=== PATIENT | male | born 1935 | race Caucasian/White ===

== ENCOUNTER 2018-05-05 01:09 | Inpatient (IN) | payer MEDICARE ==
[2018-05-05 02:22] LABS: % BASOPHILS 1.1 % (0.0-2.0); % EOSINOPHILS 6.1 % (0.0-5.0); % LYMPHOCYTES 35.7 % (20.0-50.0); % MONOCYTES 12.9 % (2.0-10.0); % NEUTROPHILS 44.2 % (40.0-80.0); BASOPHILE ABSOLUTE 0.1 Th/cumm (0-0.2); EOSINOPHILE ABSOLUTE 0.3 Th/cmm (0.1-0.4); HEMATOCRIT 37.4 % (41.0-60); HEMOGLOBIN 12.1 gm/dL (12-16); MEAN CELL VOLUME 87.4 fl (80-99); MEAN CORPUSCULAR HEMOGLOBIN 28.4 pg (27.0-31.0); MEAN CORPUSCULAR HGB CONC 32.5 pg (28.0-36.0); MEAN PLATELET VOLUME 11.1 fl; MONOCYTE ABSOLUTE 0.7 Th/cmm (0.3-1.0); NEUTROPHILE ABSOLUTE 2.6 Th/cmm (1.8-8.0); PLATELET COUNT 124 Th/cmm (150-400); RED BLOOD COUNT 4.27 Mil/cmm (3.80-5.80); RED CELL DISTRIBUTION WIDTH 14.8 % (11.5-20.0); WHITE BLOOD COUNT 5.7 Th/cmm (4.8-10.8)
[2018-05-05 02:38] LABS: ALB/GLOB RATIO 0.8 (1.0-1.8); ALBUMIN 3.5 gm/dL (4.2-5.5); ALKALINE PHOSPHATASE 90 U/L (34-104); ANION GAP 10.2 (7.0-16.0); BILIRUBIN,TOTAL 0.4 mg/dL (0.3-1.0); BUN - UREA NITROGEN 61 mg/dL (7-25); CALCIUM SERUM 9.6 mg/dL (8.6-10.3); CARBON DIOXIDE 29.7 mEq/L (21.0-31.0); CHLORIDE 101 mEq/L (98-107); CREATININE - SERUM 1.3 mg/dL (0.7-1.3); GLUCOSE 86 mg/dL (70-105); POTASSIUM SERUM 4.9 mEq/L (3.5-5.1); SGOT 21 U/L (13-39); SGPT/ALT 12 U/L (7-52); SODIUM SERUM 136 mEq/L (136-145)
--- NOTE | 2018-05-05 03:05 | ED Physician Chart ---
ED Chief Complaint/HPI - Patient Information Date Seen:: 05/05/18 Time Seen:: 03:00 Chief Complaint:: Abnormal CXR History of Present Illness:: 82 yo male with trach was brought from [facility] to ER for evaluation of CXR on showing probably right lower lobe pneumonia. TB could not be entirely excluded. At ER, pt had cough and secretion from the trach. Allergies:: Allergies Allergy/AdvReac Type Severity Reaction Status Date / Time No Known Allergies Allergy Verified 05/05/18 01:25 Vitals:: Vital Signs - 8 hr 05/05/18 01:10 Temp 97.4 F HR 70 RR 18 BP 91/55 O2 Sat % 96 ED Review of Systems - Review of Systems General/Constitutional: No fever, No chills Skin: No rash Head: No headache Eyes: No pain ENT: No nasal drainage Neck: Other (Trach) Cardio Vascular: No chest pain Pulmonary: No SOB GI: No nausea, No vomiting Musculoskeletal: No bone or joint pain Neurological: No focal symptoms ED Past Medical History - Past Medical History Past Medical History: Other (AFib, BPH, stage 4 bladder cancer) Social History: Non Smoker, No Alcohol, No Drug Use Surgical History: PEG/GTube, other (Trach) Psychiatricy History: Bipolar Family Medical History - Family Member Mother History Unknown: Yes ED Physical Exam - Physical Examination General/Constitutional: Awake, Alert Head: Atraumatic Eyes: PERRL Skin: No ecchymosis ENMT: Nasal exam nl Other Neck comments:: Trach intact Cardio Vascular: RRR, No murmur, gallop, rubs, NL S1 S2 GI: No tenderness/rebounding/guarding Extremities: normal strength in all extremities Neuro/Psych: No focal deficits ED Labs/Radiology/EKG Results - Lab Results Results: Laboratory Tests 05/05/18 02:15 WBC 5.7 RBC 4.27 Hgb 12.1 Hct 37.4 L MCV 87.4 MCH 28.4 MCHC Differential 32.5 RDW 14.8 Plt Count 124 L MPV 11.1 Neutrophils % 44.2 Lymphocytes % 35.7 Monocytes % 12.9 H Eosinophils % 6.1 H Basophils % 1.1 Laboratory Last Values WBC 5.7 Th/cmm (4.8-10.8) 05/05/18 02:15 RBC 4.27 Mil/cmm (3.80-5.80) 05/05/18 02:15 Hgb 12.1 gm/dL (12-16) 05/05/18 02:15 Hct 37.4 % (41.0-60) L 05/05/18 02:15 MCV 87.4 fl (80-99) 05/05/18 02:15 MCH 28.4 pg (27.0-31.0) 05/05/18 02:15 MCHC Differential 32.5 pg (28.0-36.0) 05/05/18 02:15 RDW 14.8 % (11.5-20.0) 05/05/18 02:15 Plt Count 124 Th/cmm (150-400) L 05/05/18 02:15 MPV 11.1 fl 05/05/18 02:15 Neutrophils % 44.2 % (40.0-80.0) 05/05/18 02:15 Lymphocytes % 35.7 % (20.0-50.0) 05/05/18 02:15 Monocytes % 12.9 % (2.0-10.0) H 05/05/18 02:15 Eosinophils % 6.1 % (0.0-5.0) H 05/05/18 02:15 Basophils % 1.1 % (0.0-2.0) 05/05/18 02:15 Sodium 136 mEq/L (136-145) 05/05/18 02:15 Potassium 4.9 mEq/L (3.5-5.1) 05/05/18 02:15 Chloride 101 mEq/L (98-107) 05/05/18 02:15 Carbon Dioxide 29.7 mEq/L (21.0-31.0) 05/05/18 02:15 Anion Gap 10.2 (7.0-16.0) 05/05/18 02:15 BUN 61 mg/dL (7-25) H 05/05/18 02:15 Creatinine 1.3 mg/dL (0.7-1.3) 05/05/18 02:15 Est GFR ( Amer) TNP 05/05/18 02:15 Est GFR (Non-Af Amer) TNP 05/05/18 02:15 BUN/Creatinine Ratio 46.9 05/05/18 02:15 Glucose 86 mg/dL (70-105) 05/05/18 02:15 POC Glucose 88 MG/DL (70 - 105) 05/05/18 10:00 Calcium 9.6 mg/dL (8.6-10.3) 05/05/18 02:15 Total Bilirubin 0.4 mg/dL (0.3-1.0) 05/05/18 02:15 AST 21 U/L (13-39) 05/05/18 02:15 ALT 12 U/L (7-52) 05/05/18 02:15 Alkaline Phosphatase 90 U/L (34-104) 05/05/18 02:15 Troponin I 0.01 ng/mL (0.01-0.05) 05/05/18 02:15 Total Protein 8.0 gm/dL (6.0-8.3) 05/05/18 02:15 Albumin 3.5 gm/dL (4.2-5.5) L 05/05/18 02:15 Globulin 4.5 gm/dL 05/05/18 02:15 Albumin/Globulin Ratio 0.8 (1.0-1.8) L 05/05/18 02:15 - Radiology Results Results: CT chest with contrast showed small cystic/cavity lesion in the right middle lobe with subjacent streaky density 2.4cm likely chronic change. Mild pleural thickening in the left lung base. calcified nodules in the left lower lobe. ED Assessment - Assessment General Assessment: Right mid lung cavity lesion with calcified nodularities left lower lobe and small mediastinal lymph nodes To rule out TB Dehydration Assessment/Comments:: CBC, CMP NS 1L iv bolus Admit to isolation unit for further evaluation and management ED Septic Shock - . Is Septic Shock (SBP<90, OR Lactate>4 mmol\L) present?: No - <6hrs of presentation: Vital Signs: Vital Signs - 8 hr 05/05/18 01:10 Temp 97.4 F HR 70 RR 18 BP 91/55 O2 Sat % 96 ED Reassessment (Disposition) - Reassessment Reassessment Condition:: Improved - Patient Disposition Discharge/Transfer:: Acute Care w/in this hosp Admitting Medical Physician:: Leila Vela
[2018-05-05] MEDS ORDERED: Sodium Chloride 0.9% 1,000 ML IV ONE (03:35)
[2018-05-05] MEDS ORDERED: IOHEXOL 300mgI/mL 100 ML VIAL ONE (03:58)
--- NOTE | 2018-05-05 08:27 | Diagnostic Imaging Report ---
Exam: CT exam of the chest HISTORY: Tuberculosis. Total DLP equals 261 CTDI equals 7.0 Findings: Multiple contiguous thin section of the chest were obtained from thoracic outlet to the upper abdomen with administration of contrast material no prior studies available comparison. The study demonstrates normal enhancement of great vessels of the neck. Tracheostomy tube is noted There is evidence for a small 2.4 cm cavitary lesion in the right middle lobe of the adjacent streaky density most likely chronic. Mild pleural effusion left lung base Calcified nodularities in the left lower lobe. Aortic is calcified tortuous. Small mediastinal lymph nodes are probably reactive. Mediastinal structures midline. Bony thorax is intact. Old deformity of the left rib cage appreciated. Examination upper abdomen demonstrates gastrostomy tube. There is evidence for a large right renal cyst measuring 6.9 cm. Left kidney is atrophic with distention of the renal pelvis. IMPRESSION: 2.4 cm cavitary lesion in the right middle lobe, most likely chronic. Calcified nodularities left lower lobe Small mediastinal lymph nodes. 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
[2018-05-05 10:41] VITALS: BP 141/88
[2018-05-05] MEDS ORDERED: Pneumococcal Vaccine 0.5 mL Vial IM ONE (11:13)
[2018-05-05] MEDS: cefTRIAXone 1 GM in Sodium Chloride 0.9% 50 ML IV SCH (11:17)
[2018-05-05] MEDS ORDERED: GLYCOPYRROLATE 1 MG GT PRN (13:26)
[2018-05-05] MEDS ORDERED: guaiFENesin 200 MG/10 ML UDC GT PRN (13:26)
--- NOTE | 2018-05-05 13:26 | History and Physical ---
History of Present Illness - HPI Chief Complaint: abnormal chest xray HPI: This is a 82-year old male who is a custodial resident admitted to the medsur unit. Patient had a chest xray done at the [facility] 05/04/18 probably right lower lobe pneumonia. TB could not be entirely excluded. CT chest with contrast showed small cystic/cavity lesion in the right middle lobe with subjacent streaky density 2.4cm. No reports of any fevers at the snf. Vital Signs: Last Vital Signs Temp 98.7 F 05/05/18 12:10 Pulse 69 05/05/18 12:10 Resp 19 05/05/18 12:10 BP 131/79 05/05/18 12:10 Pulse Ox 96 05/05/18 12:10 Past Medical History Other History: AFib, BPH, stage 4 bladder cancer Family Medical History - Family Member Mother History Unknown: Yes Social History Smoke: No Alcohol: None Drugs: None Lives: Alone - Medications Home Medications: Home Medication Medication Instructions Recorded Type Benazepril [Lotensin*] 10 mg GT DAILY 05/05/18 History Donepezil HCl [Aricept] 15 mg GT DAILY 05/05/18 History Duloxetine HCl [Cymbalta] 60 mg GT DAILY 05/05/18 History Ferrous Sulfate 220 mg GT TID 05/05/18 History Glycopyrrolate [Cuvposa] 1 mg GT Q12HR PRN 05/05/18 History Guaifenesin [Cough Syrup] 10 ml GT Q6HR PRN 05/05/18 History Lipase/Protease/Amylase [Creon Dr 1 each GT BID 05/05/18 History 12,000 Units Capsule] Polyvinyl Alcohol [Liquitears] 2 drop OP DAILY 05/05/18 History QUEtiapine Fumarate [SEROquel] 100 mg GT BID 05/05/18 History Sodium Bicarbonate 650 mg GT BID 05/05/18 History Tamsulosin [Flomax] 0.4 mg GT DAILY 05/05/18 History Valproic Acid [Depakene] 500 mg GT HS 05/05/18 History - Allergies Allergies/Adverse Reactions: Allergies Allergy/AdvReac Type Severity Reaction Status Date / Time No Known Allergies Allergy Verified 05/05/18 01:25 Review of Systems - Review of Systems Constitutional: Report: Weakness Eyes: Report: No Significant Respiratory: Report: Sputum Cardiovascular: Report: No Significant Neurological: Report: Weakness Physical Exam - Physical Exam HEENT: Report: Ears Nose Throat within normal limits Neck: Report: Within normal limits Cardiovascular Systems: Report: Regular, Rate and Rhythm Respiratory: Report: Rhonchi Abdomen: Report: Non-tender to palpation Back: Report: Inspection of back is within normal limits. Skin: Report: Warm, Dry Neuro/Psych: Report: Weakness or sensory loss noted. - Lab Results All Lab Results last 24 hours: Laboratory Results - last 24 hr 05/05/18 05/05/18 05/05/18 02:15 02:15 02:15 WBC 5.7 RBC 4.27 Hgb 12.1 Hct 37.4 L MCV 87.4 MCH 28.4 MCHC Differential 32.5 RDW 14.8 Plt Count 124 L MPV 11.1 Neutrophils % 44.2 Lymphocytes % 35.7 Monocytes % 12.9 H Eosinophils % 6.1 H Basophils % 1.1 Sodium 136 Potassium 4.9 Chloride 101 Carbon Dioxide 29.7 Anion Gap 10.2 BUN 61 H Creatinine 1.3 Est GFR ( Amer) TNP Est GFR (Non-Af Amer) TNP BUN/Creatinine Ratio 46.9 Glucose 86 POC Glucose Calcium 9.6 Total Bilirubin 0.4 AST 21 ALT 12 Alkaline Phosphatase 90 Troponin I 0.01 Total Protein 8.0 Albumin 3.5 L Globulin 4.5 Albumin/Globulin Ratio 0.8 L 05/05/18 10:00 WBC RBC Hgb Hct MCV MCH MCHC Differential RDW Plt Count MPV Neutrophils % Lymphocytes % Monocytes % Eosinophils % Basophils % Sodium Potassium Chloride Carbon Dioxide Anion Gap BUN Creatinine Est GFR ( Amer) Est GFR (Non-Af Amer) BUN/Creatinine Ratio Glucose POC Glucose 88 Calcium Total Bilirubin AST ALT Alkaline Phosphatase Troponin I Total Protein Albumin Globulin Albumin/Globulin Ratio - Assessment Assessment: r/o tb pneumonia respiratory failure BPh stage 4 bladder ca - Plan Plan: ADMIT TO [facility] ID/PULMO CONSULT TB QUANT GOLD TEST AFB X3 AM LABS RESPIRATORY TREATMENTS IVABX ZOSYN
[2018-05-05] MEDS ORDERED: FERROUS SULFATE 220 MG GT SCH (14:00)
[2018-05-05] MEDS ORDERED: [UNRECOGNIZED DRUG - OTHER] GT SCH (17:00)
[2018-05-05] MEDS ORDERED: LIPASE GT SCH (17:00)
[2018-05-05] MEDS ORDERED: PROTEASE GT SCH (17:00)
[2018-05-05] MEDS ORDERED: AMYLASE GT SCH (17:00)
[2018-05-06 06:23] LABS: % BASOPHILS 0.1 % (0.0-2.0); % LYMPHOCYTES 33.4 % (20.0-50.0); % MONOCYTES 12.1 % (2.0-10.0); % NEUTROPHILS 48.4 % (40.0-80.0); EOSINOPHILE ABSOLUTE 0.3 Th/cmm (0.1-0.4); HEMATOCRIT 37.5 % (41.0-60); HEMOGLOBIN 12.3 gm/dL (12-16); LYMPHOCYTE ABSOLUTE 1.9 Th/cmm (1.5-3.0); MEAN CELL VOLUME 87.4 fl (80-99); MEAN CORPUSCULAR HEMOGLOBIN 28.7 pg (27.0-31.0); MEAN CORPUSCULAR HGB CONC 32.9 pg (28.0-36.0); MEAN PLATELET VOLUME 11.8 fl; MONOCYTE ABSOLUTE 0.7 Th/cmm (0.3-1.0); NEUTROPHILE ABSOLUTE 2.7 Th/cmm (1.8-8.0); PLATELET COUNT 111 Th/cmm (150-400); RED BLOOD COUNT 4.29 Mil/cmm (3.80-5.80); RED CELL DISTRIBUTION WIDTH 14.6 % (11.5-20.0); WHITE BLOOD COUNT 5.6 Th/cmm (4.8-10.8)
[2018-05-06 06:37] LABS: ANION GAP 9.9 (7.0-16.0); BUN - UREA NITROGEN 45 mg/dL (7-25); CALCIUM SERUM 9.3 mg/dL (8.6-10.3); CARBON DIOXIDE 28.5 mEq/L (21.0-31.0); CHLORIDE 107 mEq/L (98-107); CREATININE - SERUM 1.1 mg/dL (0.7-1.3); GLUCOSE 83 mg/dL (70-105); POTASSIUM SERUM 4.4 mEq/L (3.5-5.1); SODIUM SERUM 141 mEq/L (136-145)
[2018-05-06] MEDS ORDERED: Non-Formulary Item 1 EA (Duloxetine Hcl [Cymbalta] 60 MG) GT SCH (09:00)
[2018-05-06] MEDS: Polyvinyl Alcohol Ophth Soln 15 mL Bottle EACH EYE SCH (10:11)
[2018-05-06] MEDS: cefTRIAXone 1 GM in Sodium Chloride 0.9% 50 ML IV SCH (10:34)
--- NOTE | 2018-05-06 11:18 | Consultation ---
DATE OF CONSULTATION: 05/05/[address] Vela. HISTORY OF PRESENT ILLNESS: This is an 82-year-old male who apparently was from a [facility] because of fever and some increased secretions and was found to have possible cavitary lesion, was placed in TB isolation room. The patient denies any shortness of breath, has some cough. He denies TB or TB exposure in the past. SOCIAL HISTORY: No smoking. PAST MEDICAL HISTORY: He has a history of bladder CA, history of BPH, AFib. PHYSICAL EXAMINATION: GENERAL: The patient is awake, alert, no distress. VITAL SIGNS: Temperature 98.7, pulse 69, respirations 19, blood pressure 131/79, saturation 97%. HEENT: Atraumatic, normocephalic. Pupils equal and reactive to light and accommodation. Ears, nose and throat normal. NECK: Supple. No JVD. CHEST: There are good breath sounds, few rhonchi. HEART: Regular rate and rhythm. ABDOMEN: Soft. EXTREMITIES: No edema. DIAGNOSTIC DATA: CT chest shows cavitary infiltrate right middle lobe area. LABORATORY DATA: WBC is 5.7, hemoglobin 12.1, hematocrit 37.4, platelets 124. Sodium 136, potassium 4.9, BUN 61, creatinine 1.3. IMPRESSION: An 82-year-old male with severe pneumonia. We need to get more information about the bladder CA if this lesion is related to any metastases, less likely tuberculosis. PLAN: 1. I agree with AFB at this point and continue. 2. Empiric antibiotics. 3. The patient is upset, does not want to stay in this facility. He said he wants to be discharged as soon as possible. We will relay this information to the primary care physician to take care from there. Thank you very much for this consultation. We will follow the patient with you. JOB# [id number]
--- NOTE | 2018-05-06 13:08 | Internal Medicine Prog Note ---
Internal Medicine Subjective - Subjective Service Date: 05/06/18 Patient seen and examined:: with staff Patient is:: awake, verbal Per staff patient has:: tolerating meds Internal Medicine Objective - Results Result Diagrams: 05/06/18 05:40 05/06/18 05:40 Recent Labs: Laboratory Last Values WBC 5.6 Th/cmm (4.8-10.8) 05/06/18 05:40 RBC 4.29 Mil/cmm (3.80-5.80) 05/06/18 05:40 Hgb 12.3 gm/dL (12-16) 05/06/18 05:40 Hct 37.5 % (41.0-60) L 05/06/18 05:40 MCV 87.4 fl (80-99) 05/06/18 05:40 MCH 28.7 pg (27.0-31.0) 05/06/18 05:40 MCHC Differential 32.9 pg (28.0-36.0) 05/06/18 05:40 RDW 14.6 % (11.5-20.0) 05/06/18 05:40 Plt Count 111 Th/cmm (150-400) L 05/06/18 05:40 MPV 11.8 fl 05/06/18 05:40 Neutrophils % 48.4 % (40.0-80.0) 05/06/18 05:40 Lymphocytes % 33.4 % (20.0-50.0) 05/06/18 05:40 Monocytes % 12.1 % (2.0-10.0) H 05/06/18 05:40 Eosinophils % 6.0 % (0.0-5.0) H 05/06/18 05:40 Basophils % 0.1 % (0.0-2.0) 05/06/18 05:40 Sodium 141 mEq/L (136-145) 05/06/18 05:40 Potassium 4.4 mEq/L (3.5-5.1) 05/06/18 05:40 Chloride 107 mEq/L (98-107) 05/06/18 05:40 Carbon Dioxide 28.5 mEq/L (21.0-31.0) 05/06/18 05:40 Anion Gap 9.9 (7.0-16.0) 05/06/18 05:40 BUN 45 mg/dL (7-25) H 05/06/18 05:40 Creatinine 1.1 mg/dL (0.7-1.3) 05/06/18 05:40 Est GFR ( Amer) TNP 05/06/18 05:40 Est GFR (Non-Af Amer) TNP 05/06/18 05:40 BUN/Creatinine Ratio 40.9 05/06/18 05:40 Glucose 83 mg/dL (70-105) 05/06/18 05:40 POC Glucose 88 MG/DL (70 - 105) 05/05/18 10:00 Calcium 9.3 mg/dL (8.6-10.3) 05/06/18 05:40 Total Bilirubin 0.4 mg/dL (0.3-1.0) 05/05/18 02:15 AST 21 U/L (13-39) 05/05/18 02:15 ALT 12 U/L (7-52) 05/05/18 02:15 Alkaline Phosphatase 90 U/L (34-104) 05/05/18 02:15 Troponin I 0.01 ng/mL (0.01-0.05) 05/05/18 02:15 Total Protein 8.0 gm/dL (6.0-8.3) 05/05/18 02:15 Albumin 3.5 gm/dL (4.2-5.5) L 05/05/18 02:15 Globulin 4.5 gm/dL 05/05/18 02:15 Albumin/Globulin Ratio 0.8 (1.0-1.8) L 05/05/18 02:15 - Physical Exam Vitals and I&O: Vital Signs Temp 96.3 F 05/06/18 12:00 Pulse 74 05/06/18 12:00 Resp 18 05/06/18 12:00 BP 129/74 05/06/18 12:00 Pulse Ox 98 05/06/18 12:00 Intake & Output 05/05/18 05/06/18 05/06/18 18:59 06:59 18:59 Intake Total 420 500 Balance 420 500 Weight (lbs) 163 lb 163 lb Intake: Intake, IV Amount 50 cefTRIAXone 1 gm In 50 Sodium Chloride 0.9% 50 ml @ 100 mls/hr IV Q24HR [facility] Rx#:[id number] Tube Feeding 370 500 Other: # Voids 3 1 # Bowel Movements 1 Weight Source Bedscale Bedscale Active Medications: Current Medications Lipase/Protease/Amylase (Zenpep 5,000 U) 1 cap PO BID [facility] Stop: 07/04/18 16:59 Last Admin: 05/06/18 10:09 Dose: 1 cap Artificial Tears (Artificial Tears Ophth Soln) 2 drop EACH EYE DAILY [facility] Stop: 07/05/18 08:59 Last Admin: 05/06/18 10:11 Dose: 2 drop Benazepril HCl (Lotensin) 10 mg GT DAILY [facility] Stop: 07/05/18 08:59 Last Admin: 05/06/18 10:10 Dose: 10 mg Donepezil HCl (Aricept) 15 mg GT DAILY [facility] Stop: 07/05/18 08:59 Last Admin: 05/06/18 10:11 Dose: 15 mg Duloxetine HCl (Cymbalta) 60 mg PO DAILY [facility] Stop: 07/05/18 08:59 Last Admin: 05/06/18 10:09 Dose: 60 mg Glycopyrrolate (Robinul) 1 mg PO BID [facility] Stop: 07/04/18 16:59 Last Admin: 05/06/18 10:10 Dose: 1 mg Guaifenesin (Robitussin) 200 mg GT Q6HR PRN PRN Reason: Cough Stop: 07/04/18 13:25 Ceftriaxone Sodium 1 gm/ (Sodium Chloride) 50 mls @ 100 mls/hr IV Q24HR [facility] Stop: 07/04/18 10:06 Last Admin: 05/06/18 10:34 Dose: 100 mls/hr Quetiapine Fumarate (Seroquel) 100 mg GT BID [facility]; Protocol Stop: 07/04/18 16:59 Last Admin: 05/06/18 10:11 Dose: 100 mg Sodium Bicarbonate (Sodium Bicarbonate) 650 mg GT BID [facility]; Protocol Stop: 07/04/18 16:59 Last Admin: 05/06/18 10:09 Dose: 650 mg Tamsulosin HCl (Flomax) 0.4 mg GT DAILY [facility] Stop: 07/05/18 08:59 Last Admin: 05/06/18 10:11 Dose: 0.4 mg Valproate Sodium (Depakene) 500 mg GT HS [facility]; Protocol Stop: 07/04/18 20:59 Last Admin: 05/05/18 21:33 Dose: 500 mg General: weak, alert HEENT: NC/AT, PERRLA Neck: + trach Abdomen: soft, non-tender, non-distended Extremities: excoriation Neurological: alert, muscle weakness Internal Medicine Assmt/Plan - Assessment Assessment: r/o tb aspiration pneumonia respiratory failure BPh stage 4 bladder ca tracheostomy status - Plan Plan: TB QUANT GOLD TEST pending AFB X3 AM LABS RESPIRATORY TREATMENTS IVABX ZOSYN continue current plan of care
--- NOTE | 2018-05-07 06:04 | Consultation ---
DATE OF CONSULTATION: 05/06/2018 INFECTIOUS DISEASE CONSULTATION REFERRING PHYSICIAN: Dr. Vela. REASON FOR CONSULTATION: Cavitary lesion, right lower lobe. Rule out tuberculosis. HISTORY OF PRESENT ILLNESS: The patient is an 82-year-old male with past medical history of atrial fibrillation, BPH, stage 4 bladder cancer, resident of a nursing facility, had a chest x-ray done on 05/04/2018 that showed probable right lower lobe pneumonia, suspected tuberculosis. CT scan of the chest was done at this facility and it revealed right middle lobe cavitary lesion, chronic in nature, with lymphadenopathy. TB was suspected and TB workup was initiated. On initial evaluation, the patient's temperature was 97.4-degree Fahrenheit and WBC count was 5700. The patient was started on Rocephin and ID consult was called for further antibiotic management. The patient denies any fever or hemoptysis or any significant weight loss. ALLERGIES: NKDA. PAST MEDICAL HISTORY: As mentioned above; BPH, AFib, stage 4 bladder cancer. FAMILY HISTORY: Unknown. SOCIAL HISTORY: The patient lives in a nursing facility. No history of smoking, alcohol or drug use. MEDICATIONS: As per medication reconciliation sheet. Antibiotic gallardo, the patient is on Rocephin. REVIEW OF SYSTEMS: GENERAL: The patient denies any fever or chills. The patient denies any generalized weakness. HEENT: Denies any diplopia, photophobia, or sore throat. RESPIRATORY: Denies any cough or shortness of breath. CVS: The patient denies any chest pain or palpitation. GASTROINTESTINAL: The patient denies nausea, vomiting, diarrhea, or constipation. GENITOURINARY: No dysuria. NEUROLOGIC: No headache, no dizziness, no focal weakness. PHYSICAL EXAMINATION: CURRENT VITAL SIGNS: Show temperature is 96.1-degree Fahrenheit, pulse 76, respirations 19, blood pressure 132/74. GENERAL: The patient is comfortable, lying in the bed, not in acute distress. HEENT: Head is normocephalic, atraumatic. Oral cavity is moist, pink tongue. Eyes: Pallor is present, no icterus. Pupils, PERRLA and EOMI. NECK: Supple. No JVD, no carotid bruit. Trachea in midline. CHEST: Bilateral breath sounds. No crackles or wheezing. CARDIOVASCULAR: S1 and S2 within normal limits. Regular rhythm. No murmur, no gallop. ABDOMEN: Soft, nontender, nondistended. Bowel sounds present. EXTREMITIES: No cyanosis, no clubbing, no edema. NEUROLOGIC: Alert, awake, oriented x 3. No focal deficits. LABORATORY DATA: Current lab shows WBC count is 5600, hemoglobin 12.3, hematocrit 37.5, platelets are 111,000, neutrophils 48.4%. Sodium 141, potassium 4.4, chloride 107, bicarbonate is 28, BUN is 45, creatinine 1.1, and glucose is 83. DIAGNOSTIC DATA: CT scan of the chest revealed 2.4 cm cavitary lesion in the right middle lobe, most likely chronic changes not related to left lower lobe, has small mediastinal lymph node, granulomatous disease in hilar region. IMPRESSION: 1. Cavitary lesion, doubt that the patient may have tuberculosis. Although TB workup was started, we will follow the AFB x 3. We will check the TB Gold QuantiFERON and continue Rocephin. There is a possibility that it can be a metastatic disease. 2. Benign prostatic hypertrophy. 3. Atrial fibrillation. 4. Stage 4 bladder cancer. RECOMMENDATIONS: We will continue Rocephin. We will continue TB workup. Depending on the outcome, we will define further plan. Thank you, Dr. Vela for involving me in taking care of this patient. JOB# [id number] [facility]IA
[2018-05-07] MEDS: cefTRIAXone 1 GM in Sodium Chloride 0.9% 50 ML IV SCH (09:06)
[2018-05-07] MEDS: Polyvinyl Alcohol Ophth Soln 15 mL Bottle EACH EYE SCH (09:07)
[2018-05-07 11:15] LABS: % BASOPHILS 0.5 % (0.0-2.0); % EOSINOPHILS 4.9 % (0.0-5.0); % LYMPHOCYTES 26.6 % (20.0-50.0); % MONOCYTES 12.5 % (2.0-10.0); % NEUTROPHILS 55.5 % (40.0-80.0); EOSINOPHILE ABSOLUTE 0.3 Th/cmm (0.1-0.4); HEMATOCRIT 34.8 % (41.0-60); HEMOGLOBIN 11.4 gm/dL (12-16); LYMPHOCYTE ABSOLUTE 1.4 Th/cmm (1.5-3.0); MEAN CELL VOLUME 87.8 fl (80-99); MEAN CORPUSCULAR HEMOGLOBIN 28.8 pg (27.0-31.0); MEAN CORPUSCULAR HGB CONC 32.8 pg (28.0-36.0); MEAN PLATELET VOLUME 11.4 fl; MONOCYTE ABSOLUTE 0.7 Th/cmm (0.3-1.0); NEUTROPHILE ABSOLUTE 2.9 Th/cmm (1.8-8.0); PLATELET COUNT 108 Th/cmm (150-400); RED BLOOD COUNT 3.96 Mil/cmm (3.80-5.80); RED CELL DISTRIBUTION WIDTH 14.5 % (11.5-20.0); WHITE BLOOD COUNT 5.3 Th/cmm (4.8-10.8)
--- NOTE | 2018-05-07 11:35 | Internal Medicine Prog Note ---
Internal Medicine Subjective - Subjective Service Date: 05/07/18 Patient seen and examined:: with staff, chart reviewed Patient is:: awake, verbal, interactive Patient Complaints of:: other (Afib x 3.) Per staff patient has:: no episodes of fall, tolerating meds Internal Medicine Objective - Results Result Diagrams: 05/06/18 05:40 05/06/18 05:40 Recent Labs: Laboratory Last Values WBC 5.6 Th/cmm (4.8-10.8) 05/06/18 05:40 RBC 4.29 Mil/cmm (3.80-5.80) 05/06/18 05:40 Hgb 12.3 gm/dL (12-16) 05/06/18 05:40 Hct 37.5 % (41.0-60) L 05/06/18 05:40 MCV 87.4 fl (80-99) 05/06/18 05:40 MCH 28.7 pg (27.0-31.0) 05/06/18 05:40 MCHC Differential 32.9 pg (28.0-36.0) 05/06/18 05:40 RDW 14.6 % (11.5-20.0) 05/06/18 05:40 Plt Count 111 Th/cmm (150-400) L 05/06/18 05:40 MPV 11.8 fl 05/06/18 05:40 Neutrophils % 48.4 % (40.0-80.0) 05/06/18 05:40 Lymphocytes % 33.4 % (20.0-50.0) 05/06/18 05:40 Monocytes % 12.1 % (2.0-10.0) H 05/06/18 05:40 Eosinophils % 6.0 % (0.0-5.0) H 05/06/18 05:40 Basophils % 0.1 % (0.0-2.0) 05/06/18 05:40 Sodium 141 mEq/L (136-145) 05/06/18 05:40 Potassium 4.4 mEq/L (3.5-5.1) 05/06/18 05:40 Chloride 107 mEq/L (98-107) 05/06/18 05:40 Carbon Dioxide 28.5 mEq/L (21.0-31.0) 05/06/18 05:40 Anion Gap 9.9 (7.0-16.0) 05/06/18 05:40 BUN 45 mg/dL (7-25) H 05/06/18 05:40 Creatinine 1.1 mg/dL (0.7-1.3) 05/06/18 05:40 Est GFR ( Amer) TNP 05/06/18 05:40 Est GFR (Non-Af Amer) TNP 05/06/18 05:40 BUN/Creatinine Ratio 40.9 05/06/18 05:40 Glucose 83 mg/dL (70-105) 05/06/18 05:40 POC Glucose 88 MG/DL (70 - 105) 05/05/18 10:00 Calcium 9.3 mg/dL (8.6-10.3) 05/06/18 05:40 Total Bilirubin 0.4 mg/dL (0.3-1.0) 05/05/18 02:15 AST 21 U/L (13-39) 05/05/18 02:15 ALT 12 U/L (7-52) 05/05/18 02:15 Alkaline Phosphatase 90 U/L (34-104) 05/05/18 02:15 Troponin I 0.01 ng/mL (0.01-0.05) 05/05/18 02:15 Total Protein 8.0 gm/dL (6.0-8.3) 05/05/18 02:15 Albumin 3.5 gm/dL (4.2-5.5) L 05/05/18 02:15 Globulin 4.5 gm/dL 05/05/18 02:15 Albumin/Globulin Ratio 0.8 (1.0-1.8) L 05/05/18 02:15 - Physical Exam Vitals and I&O: Vital Signs Temp 97.0 F 05/07/18 08:20 Pulse 93 05/07/18 09:07 Resp 20 05/07/18 08:20 BP 122/69 05/07/18 09:07 Pulse Ox 97 05/07/18 08:20 Intake & Output 05/06/18 05/07/18 05/07/18 18:59 06:59 18:59 Intake Total 760 750 Output Total 500 Balance 760 250 Weight (lbs) 73.936 kg 73.936 kg Intake: Intake, IV Amount 50 cefTRIAXone 1 gm In 50 Sodium Chloride 0.9% 50 ml @ 100 mls/hr IV Q24HR [facility] Rx#:[id number] Tube Feeding 710 750 Output: Urine 500 Other: # Voids 3 # Bowel Movements 0 1 Weight Source Bedscale Bedscale Active Medications: Current Medications Lipase/Protease/Amylase (Zenpep 5,000 U) 1 cap PO BID [facility] Stop: 07/04/18 16:59 Last Admin: 05/07/18 09:08 Dose: 1 cap Artificial Tears (Artificial Tears Ophth Soln) 2 drop EACH EYE DAILY [facility] Stop: 07/05/18 08:59 Last Admin: 05/07/18 09:07 Dose: 2 drop Benazepril HCl (Lotensin) 10 mg GT DAILY [facility] Stop: 07/05/18 08:59 Last Admin: 05/07/18 09:07 Dose: 10 mg Donepezil HCl (Aricept) 15 mg GT DAILY [facility] Stop: 07/05/18 08:59 Last Admin: 05/07/18 09:08 Dose: 15 mg Duloxetine HCl (Cymbalta) 60 mg PO DAILY [facility] Stop: 07/05/18 08:59 Last Admin: 05/07/18 09:09 Dose: 60 mg Glycopyrrolate (Robinul) 1 mg PO BID [facility] Stop: 07/04/18 16:59 Last Admin: 05/07/18 09:09 Dose: 1 mg Guaifenesin (Robitussin) 200 mg GT Q6HR PRN PRN Reason: Cough Stop: 07/04/18 13:25 Ceftriaxone Sodium 1 gm/ (Sodium Chloride) 50 mls @ 100 mls/hr IV Q24HR [facility] Stop: 07/04/18 10:06 Last Admin: 05/07/18 09:06 Dose: 100 mls/hr Quetiapine Fumarate (Seroquel) 100 mg GT BID [facility]; Protocol Stop: 07/04/18 16:59 Last Admin: 05/07/18 09:07 Dose: 100 mg Sodium Bicarbonate (Sodium Bicarbonate) 650 mg GT BID [facility]; Protocol Stop: 07/04/18 16:59 Last Admin: 05/07/18 09:08 Dose: 650 mg Tamsulosin HCl (Flomax) 0.4 mg GT DAILY [facility] Stop: 07/05/18 08:59 Last Admin: 05/07/18 09:08 Dose: 0.4 mg Valproate Sodium (Depakene) 500 mg GT HS [facility]; Protocol Stop: 07/04/18 20:59 Last Admin: 05/06/18 20:34 Dose: 500 mg Physical Exam: 82 y/o male patient recently had a Chest x-ray done on 05/04/18 which showed probable right lower lobe pneumonia, suspected Tuberculosis. CT scan was also done on patient, which revealed Cavitary lesion, right lower lobe. General: weak, alert HEENT: NC/AT, PERRLA Neck: + trach Lungs: wheezing, rales Cardiovascular: RRR, Normal S1 Abdomen: soft, non-tender, non-distended Extremities: excoriation Neurological: alert, muscle weakness Internal Medicine Assmt/Plan - Assessment Assessment: Cavitary lesion, right lower lobe. BPH. Atrial Fibrillation. Stage 4 bladder cancer. - Plan Plan: Continuation of care. Continue present antibiotic and meds as directed. Monitor Labs, Diet. Trach care. Fall precaution. Pain management. TB workup. Followup with Dr. Abbi Leyva. Continue current treatment plan as ordered. Nutritional Asmnt/Malnutr-PDOC - Dietary Evaluation Malnutrition Findings (Please click <Entered> for more info): Nutritional Asmnt/Malnutrition Start: 05/06/18 15: 50 Text: Status: Complete Freq: Protocol: Document 05/06/18 15:50 LCHENG (Rec: 05/06/18 16:06 LCHENG [email or web address]) Nutritional Asmnt/Malnutrition Patient General Information Nutritional Screening High Risk Diagnosis possible DC Pertinent Medical Hx/Surgical Hx afib, BOPH, stage4 blader CA, PEG/Gtube, trach Subjective Information Pt seen in airebone isolation room. Per RN, pt is geting bolus feeding 5 times daily. Current Diet Order/ Nutrition Support Jevity 1.2 250ml x 5 daily Pertinent Medications seroquel Pertinent Labs 05/06 BUN 45 Nutritional Hx/Data Height 1.68 m Height (Calculated Centimeters) 167.6 Current Weight (lbs) 73.936 kg Weight (Calculated Kilograms) 73.9 Weight (Calculated Grams) 12953.6 [place] Body Weight 142 Body Mass Index (BMI) 26.3 Weight Status Overweight GI Symptoms GI Symptoms None Last BM 05/05 Difficult in: None Skin Integrity/Comment: skin tear reddended to lwoer buttocks Estimated Nutritional Goals BEE in Kcals: Using Current wt Calories/Kcals/Kg 20-25 Kcals Calculated 8414-7996 Protein: Using Current wt Protein g/k.8-1 Protein Calculated 59-74 Fluid: ml 1480-1850ml (1ml/kcal) Nutritional Problem No current Nutrition Prob Problem N/A Malnutrition Alert Is there a minimum of two criteria No selected? Query Text:Check all the applicable criteria. A minimum of two criteria are recommended for diagnosis of either severe or non-severe malnutrition. Malnutrition Related to Morbid Obesity Malnutrition related to morbid obesity No Intervention/Recommendation Comments 1. Continue with current TF regimen. It provides 1500kcal, 69g protein, 1008ml free water, meeting 100% of nutritional needs 2. Monitor tolerance, wt, skin integrity and labs 3. F/U as moderate risk in 3-5 days Expected Outcomes/Goals Expected Outcomes/Goals 1. Pt to meet at least 90% of nutritional needs via nutrition support with tolerance 2. Wt stability, skin to remain intact, labs to approach WNL.
[2018-05-07 11:50] LABS: ANION GAP 11.6 (7.0-16.0); BUN - UREA NITROGEN 48 mg/dL (7-25); CALCIUM SERUM 9.1 mg/dL (8.6-10.3); CARBON DIOXIDE 25.7 mEq/L (21.0-31.0); CHLORIDE 109 mEq/L (98-107); GLUCOSE 100 mg/dL (70-105); POTASSIUM SERUM 4.3 mEq/L (3.5-5.1); SODIUM SERUM 142 mEq/L (136-145)
--- NOTE | 2018-05-07 14:45 | Progress Notes ---
DATE: 05/06/2018 PULMONARY PROGRESS NOTE SUBJECTIVE: The patient in much better spirits today, is relaxed, less congestion, is coughing. OBJECTIVE: VITAL SIGNS: Temperature is 96.3, pulse 74, respiration is 18, blood pressure 129/74, saturation 90%. CHEST: Good breath sounds, occasional rhonchi. HEART: Regular rate and rhythm. ABDOMEN: Soft. EXTREMITIES: No edema. LABORATORY DATA: WBC is 5.6, hemoglobin 12.3, platelets 111. Sodium 141, potassium 4.4, BUN is 45, creatinine 1.1. ASSESSMENT: 1. Chronic respiratory failure, history of tracheostomy for 1 year, is off the vent since for a while now. 2. History of bladder carcinoma. He denies any mets to the lungs. 3. Pneumonia, cavitary lesion, rule out tuberculosis, less likely. PLAN: 1. Continue nebulizer. 2. Antibiotics. 3. Sputum culture and follow up AFBs. Discussed with the patient in details. JOB# [id number]
[2018-05-08] MEDS: Polyvinyl Alcohol Ophth Soln 15 mL Bottle EACH EYE SCH (08:22)
[2018-05-08] MEDS: cefTRIAXone 1 GM in Sodium Chloride 0.9% 50 ML IV SCH (09:13)
--- NOTE | 2018-05-08 13:02 | Progress Notes ---
DATE: 05/07/2018 SUBJECTIVE: The patient wants to be discharged as soon as possible. He feels better. OBJECTIVE: VITAL SIGNS: Temperature 97.0, pulse 90, respirations 21, blood pressure 121/70, saturation 97%. CHEST: Good breath sounds, there are a few rhonchi. HEART: Regular rate and rhythm. ABDOMEN: Soft. EXTREMITIES: No edema. LABORATORY DATA: Sodium 142, potassium 4.3. WBC is 5.3, hemoglobin 9.4. IMPRESSION: This is an 82-year-old male with: 1. Pneumonia. 2. Cavitary lesion, rule out tuberculosis. PLAN: 1. Continue AFBs, one is negative, waiting for 2 more and TB Gold. 2. Continue IV antibiotics per ID and the nebulizer treatment. Discussed with the patient's family. JOB# [id number]
--- NOTE | 2018-05-08 14:47 | Internal Medicine Prog Note ---
Internal Medicine Subjective - Subjective Service Date: 05/08/18 Patient is:: awake, verbal, interactive Patient Complaints of:: other (Afib x 3.) Per staff patient has:: no episodes of fall, tolerating meds Internal Medicine Objective - Results Result Diagrams: 05/07/18 10:45 05/07/18 10:45 Recent Labs: Laboratory Last Values WBC 5.3 Th/cmm (4.8-10.8) 05/07/18 10:45 RBC 3.96 Mil/cmm (3.80-5.80) 05/07/18 10:45 Hgb 11.4 gm/dL (12-16) L 05/07/18 10:45 Hct 34.8 % (41.0-60) L 05/07/18 10:45 MCV 87.8 fl (80-99) 05/07/18 10:45 MCH 28.8 pg (27.0-31.0) 05/07/18 10:45 MCHC Differential 32.8 pg (28.0-36.0) 05/07/18 10:45 RDW 14.5 % (11.5-20.0) 05/07/18 10:45 Plt Count 108 Th/cmm (150-400) L 05/07/18 10:45 MPV 11.4 fl 05/07/18 10:45 Neutrophils % 55.5 % (40.0-80.0) 05/07/18 10:45 Lymphocytes % 26.6 % (20.0-50.0) 05/07/18 10:45 Monocytes % 12.5 % (2.0-10.0) H 05/07/18 10:45 Eosinophils % 4.9 % (0.0-5.0) 05/07/18 10:45 Basophils % 0.5 % (0.0-2.0) 05/07/18 10:45 Sodium 142 mEq/L (136-145) 05/07/18 10:45 Potassium 4.3 mEq/L (3.5-5.1) 05/07/18 10:45 Chloride 109 mEq/L (98-107) H 05/07/18 10:45 Carbon Dioxide 25.7 mEq/L (21.0-31.0) 05/07/18 10:45 Anion Gap 11.6 (7.0-16.0) 05/07/18 10:45 BUN 48 mg/dL (7-25) H 05/07/18 10:45 Creatinine 1.0 mg/dL (0.7-1.3) 05/07/18 10:45 Est GFR ( Amer) TNP 05/07/18 10:45 Est GFR (Non-Af Amer) TNP 05/07/18 10:45 BUN/Creatinine Ratio 48.0 05/07/18 10:45 Glucose 100 mg/dL (70-105) 05/07/18 10:45 POC Glucose 88 MG/DL (70 - 105) 05/05/18 10:00 Calcium 9.1 mg/dL (8.6-10.3) 05/07/18 10:45 Total Bilirubin 0.4 mg/dL (0.3-1.0) 05/05/18 02:15 AST 21 U/L (13-39) 05/05/18 02:15 ALT 12 U/L (7-52) 05/05/18 02:15 Alkaline Phosphatase 90 U/L (34-104) 05/05/18 02:15 Troponin I 0.01 ng/mL (0.01-0.05) 05/05/18 02:15 Total Protein 8.0 gm/dL (6.0-8.3) 05/05/18 02:15 Albumin 3.5 gm/dL (4.2-5.5) L 05/05/18 02:15 Globulin 4.5 gm/dL 05/05/18 02:15 Albumin/Globulin Ratio 0.8 (1.0-1.8) L 05/05/18 02:15 - Physical Exam Vitals and I&O: Vital Signs Temp 97 F 05/08/18 11:22 Pulse 74 05/08/18 11:22 Resp 18 05/08/18 11:22 BP 106/59 05/08/18 11:22 Pulse Ox 97 05/08/18 11:22 Intake & Output 05/07/18 05/08/18 05/08/18 18:59 06:59 18:59 Intake Total 1295 Balance 1295 Weight (lbs) 163 lb Intake: Intake, IV Amount 50 cefTRIAXone 1 gm In 50 Sodium Chloride 0.9% 50 ml @ 100 mls/hr IV Q24HR [facility] Rx#:[id number] Tube Feeding 1245 Other: # Voids 2 # Bowel Movements 1 Weight Source Bedscale Active Medications: Current Medications Lipase/Protease/Amylase (Zenpep 5,000 U) 1 cap PO BID [facility] Stop: 07/04/18 16:59 Last Admin: 05/08/18 08:22 Dose: 1 cap Artificial Tears (Artificial Tears Ophth Soln) 2 drop EACH EYE DAILY [facility] Stop: 07/05/18 08:59 Last Admin: 05/08/18 08:22 Dose: 2 drop Benazepril HCl (Lotensin) 10 mg GT DAILY [facility] Stop: 07/05/18 08:59 Last Admin: 05/08/18 08:22 Dose: 10 mg Donepezil HCl (Aricept) 15 mg GT DAILY [facility] Stop: 07/05/18 08:59 Last Admin: 05/08/18 08:22 Dose: 15 mg Duloxetine HCl (Cymbalta) 60 mg PO DAILY [facility] Stop: 07/05/18 08:59 Last Admin: 05/08/18 08:22 Dose: 60 mg Glycopyrrolate (Robinul) 1 mg PO BID [facility] Stop: 07/04/18 16:59 Last Admin: 05/08/18 08:22 Dose: 1 mg Guaifenesin (Robitussin) 200 mg GT Q6HR PRN PRN Reason: Cough Stop: 07/04/18 13:25 Ceftriaxone Sodium 1 gm/ (Sodium Chloride) 50 mls @ 100 mls/hr IV Q24HR [facility] Stop: 07/04/18 10:06 Last Admin: 05/08/18 09:13 Dose: 100 mls/hr Mupirocin (Bactroban Oint) 1 appl NS BID [facility] Stop: 05/12/18 09:01 Last Admin: 05/08/18 08:22 Dose: 1 appl Quetiapine Fumarate (Seroquel) 100 mg GT BID [facility]; Protocol Stop: 07/04/18 16:59 Last Admin: 05/08/18 08:22 Dose: 100 mg Sodium Bicarbonate (Sodium Bicarbonate) 650 mg GT BID [facility]; Protocol Stop: 07/04/18 16:59 Last Admin: 05/08/18 08:22 Dose: 650 mg Tamsulosin HCl (Flomax) 0.4 mg GT DAILY [facility] Stop: 07/05/18 08:59 Last Admin: 05/08/18 08:22 Dose: 0.4 mg Valproate Sodium (Depakene) 500 mg GT HS [facility]; Protocol Stop: 07/04/18 20:59 Last Admin: 05/07/18 21:50 Dose: 500 mg General: weak, alert HEENT: NC/AT, PERRLA Neck: + trach Lungs: wheezing, rales Cardiovascular: RRR, Normal S1 Abdomen: soft, non-tender, non-distended Extremities: excoriation Neurological: alert, muscle weakness Internal Medicine Assmt/Plan - Assessment Assessment: r/o tb aspiration pneumonia respiratory failure BPh stage 4 bladder ca tracheostomy status - Plan Plan: AM LABS RESPIRATORY TREATMENTS IVABX ZOSYN continue current plan of care Nutritional Asmnt/Malnutr-PDOC - Dietary Evaluation Malnutrition Findings (Please click <Entered> for more info): Nutritional Asmnt/Malnutrition Start: 05/06/18 15: 50 Text: Status: Complete Freq: Protocol: Document 05/06/18 15:50 LCHENG (Rec: 05/06/18 16:06 LCH[facility] [email or web address]) Nutritional Asmnt/Malnutrition Patient General Information Nutritional Screening High Risk Diagnosis possible DC Pertinent Medical Hx/Surgical Hx afib, BOPH, stage4 blader CA, PEG/Gtube, trach Subjective Information Pt seen in airebone isolation room. Per RN, pt is geting bolus feeding 5 times daily. Current Diet Order/ Nutrition Support Jevity 1.2 250ml x 5 daily Pertinent Medications seroquel Pertinent Labs 05/06 BUN 45 Nutritional Hx/Data Height 5 ft 6 in Height (Calculated Centimeters) 167.6 Current Weight (lbs) 163 lb Weight (Calculated Kilograms) 73.9 Weight (Calculated Grams) 70130.6 [place] Body Weight 142 Body Mass Index (BMI) 26.3 Weight Status Overweight GI Symptoms GI Symptoms None Last BM 05/05 Difficult in: None Skin Integrity/Comment: skin tear reddended to lwoer buttocks Estimated Nutritional Goals BEE in Kcals: Using Current wt Calories/Kcals/Kg 20-25 Kcals Calculated 3529-9312 Protein: Using Current wt Protein g/k.8-1 Protein Calculated 59-74 Fluid: ml 1480-1850ml (1ml/kcal) Nutritional Problem No current Nutrition Prob Problem N/A Malnutrition Alert Is there a minimum of two criteria No selected? Query Text:Check all the applicable criteria. A minimum of two criteria are recommended for diagnosis of either severe or non-severe malnutrition. Malnutrition Related to Morbid Obesity Malnutrition related to morbid obesity No Intervention/Recommendation Comments 1. Continue with current TF regimen. It provides 1500kcal, 69g protein, 1008ml free water, meeting 100% of nutritional needs 2. Monitor tolerance, wt, skin integrity and labs 3. F/U as moderate risk in 3-5 days Expected Outcomes/Goals Expected Outcomes/Goals 1. Pt to meet at least 90% of nutritional needs via nutrition support with tolerance 2. Wt stability, skin to remain intact, labs to approach WNL.
--- NOTE | 2018-05-08 23:01 | Infectious Disease Prog Note ---
Infectious Disease Subjective - Review of Systems Service Date: 05/08/18 Subjective: There is no new change, no fever. Infectious Disease Objective - Results Result Diagrams: 05/07/18 10:45 05/07/18 10:45 Recent Labs: Laboratory Last Values WBC 5.3 Th/cmm (4.8-10.8) 05/07/18 10:45 RBC 3.96 Mil/cmm (3.80-5.80) 05/07/18 10:45 Hgb 11.4 gm/dL (12-16) L 05/07/18 10:45 Hct 34.8 % (41.0-60) L 05/07/18 10:45 MCV 87.8 fl (80-99) 05/07/18 10:45 MCH 28.8 pg (27.0-31.0) 05/07/18 10:45 MCHC Differential 32.8 pg (28.0-36.0) 05/07/18 10:45 RDW 14.5 % (11.5-20.0) 05/07/18 10:45 Plt Count 108 Th/cmm (150-400) L 05/07/18 10:45 MPV 11.4 fl 05/07/18 10:45 Neutrophils % 55.5 % (40.0-80.0) 05/07/18 10:45 Lymphocytes % 26.6 % (20.0-50.0) 05/07/18 10:45 Monocytes % 12.5 % (2.0-10.0) H 05/07/18 10:45 Eosinophils % 4.9 % (0.0-5.0) 05/07/18 10:45 Basophils % 0.5 % (0.0-2.0) 05/07/18 10:45 Sodium 142 mEq/L (136-145) 05/07/18 10:45 Potassium 4.3 mEq/L (3.5-5.1) 05/07/18 10:45 Chloride 109 mEq/L (98-107) H 05/07/18 10:45 Carbon Dioxide 25.7 mEq/L (21.0-31.0) 05/07/18 10:45 Anion Gap 11.6 (7.0-16.0) 05/07/18 10:45 BUN 48 mg/dL (7-25) H 05/07/18 10:45 Creatinine 1.0 mg/dL (0.7-1.3) 05/07/18 10:45 Est GFR ( Amer) TNP 05/07/18 10:45 Est GFR (Non-Af Amer) TNP 05/07/18 10:45 BUN/Creatinine Ratio 48.0 05/07/18 10:45 Glucose 100 mg/dL (70-105) 05/07/18 10:45 POC Glucose 88 MG/DL (70 - 105) 05/05/18 10:00 Calcium 9.1 mg/dL (8.6-10.3) 05/07/18 10:45 Total Bilirubin 0.4 mg/dL (0.3-1.0) 05/05/18 02:15 AST 21 U/L (13-39) 05/05/18 02:15 ALT 12 U/L (7-52) 05/05/18 02:15 Alkaline Phosphatase 90 U/L (34-104) 05/05/18 02:15 Troponin I 0.01 ng/mL (0.01-0.05) 05/05/18 02:15 Total Protein 8.0 gm/dL (6.0-8.3) 05/05/18 02:15 Albumin 3.5 gm/dL (4.2-5.5) L 05/05/18 02:15 Globulin 4.5 gm/dL 05/05/18 02:15 Albumin/Globulin Ratio 0.8 (1.0-1.8) L 05/05/18 02:15 - Physical Exam Vitals and I&O: Vital Signs Temp 98.8 F 05/08/18 20:00 Pulse 68 05/08/18 20:00 Resp 19 05/08/18 20:00 BP 114/63 05/08/18 20:00 Pulse Ox 96 05/08/18 20:00 Intake & Output 05/08/18 05/08/18 05/09/18 06:59 18:59 06:59 Intake Total 1000 Balance 1000 Weight (lbs) 74.843 kg Intake: Tube Feeding 1000 Other: # Voids 3 # Bowel Movements 0 Weight Source Bedscale Active Medications: Current Medications Lipase/Protease/Amylase (Zenpep 5,000 U) 1 cap PO BID [facility] Stop: 07/04/18 16:59 Last Admin: 05/08/18 16:08 Dose: 1 cap Artificial Tears (Artificial Tears Ophth Soln) 2 drop EACH EYE DAILY [facility] Stop: 07/05/18 08:59 Last Admin: 05/08/18 08:22 Dose: 2 drop Benazepril HCl (Lotensin) 10 mg GT DAILY [facility] Stop: 07/05/18 08:59 Last Admin: 05/08/18 08:22 Dose: 10 mg Donepezil HCl (Aricept) 15 mg GT DAILY [facility] Stop: 07/05/18 08:59 Last Admin: 05/08/18 08:22 Dose: 15 mg Duloxetine HCl (Cymbalta) 60 mg PO DAILY [facility] Stop: 07/05/18 08:59 Last Admin: 05/08/18 08:22 Dose: 60 mg Glycopyrrolate (Robinul) 1 mg PO BID [facility] Stop: 07/04/18 16:59 Last Admin: 05/08/18 16:09 Dose: 1 mg Guaifenesin (Robitussin) 200 mg GT Q6HR PRN PRN Reason: Cough Stop: 07/04/18 13:25 Ceftriaxone Sodium 1 gm/ (Sodium Chloride) 50 mls @ 100 mls/hr IV Q24HR [facility] Stop: 07/04/18 10:06 Last Admin: 05/08/18 09:13 Dose: 100 mls/hr Mupirocin (Bactroban Oint) 1 appl NS BID [facility] Stop: 05/12/18 09:01 Last Admin: 05/08/18 16:08 Dose: 1 appl Quetiapine Fumarate (Seroquel) 100 mg GT BID [facility]; Protocol Stop: 07/04/18 16:59 Last Admin: 05/08/18 16:08 Dose: 100 mg Sodium Bicarbonate (Sodium Bicarbonate) 650 mg GT BID [facility]; Protocol Stop: 07/04/18 16:59 Last Admin: 05/08/18 16:08 Dose: 650 mg Tamsulosin HCl (Flomax) 0.4 mg GT DAILY [facility] Stop: 07/05/18 08:59 Last Admin: 05/08/18 08:22 Dose: 0.4 mg Valproate Sodium (Depakene) 500 mg GT HS [facility]; Protocol Stop: 07/04/18 20:59 Last Admin: 05/08/18 20:48 Dose: 500 mg General: no acute distress, well developed, well nourished HEENT: atraumatic, normocephalic, PERRLA, EOMI Neck: supple, no thyromegaly Cardiovascular: S1S2, regular Lungs: clear to auscultation bilaterally, clear to percussion Abdomen: soft, no tender, no distended Extremities: no cyanosis, no clubbing, no edema Neurological: awake, alert, oriented Skin: intact Infectious Disease Assmt/Plan - Assessment Assessment: 1. Cavitary lesion in the lung. seems less likely Pulmonary TB. Sputum for AFB smear is negative x3, MTB PCR pending,. TB gold quantiferon is negative. 2, BPH. 3. Afig. 4. Prostate CA. - Plan Plan: When cleared by the public health/Infection Control DEPT patient can be reomoved from isolation and dc patient. Nutritional Asmnt/Malnutr-PDOC - Dietary Evaluation Malnutrition Findings (Please click <Entered> for more info): Nutritional Asmnt/Malnutrition Start: 05/06/18 15: 50 Text: Status: Complete Freq: Protocol: Document 05/06/18 15:50 LCHENG (Rec: 05/06/18 16:06 LCHENG [email or web address]) Nutritional Asmnt/Malnutrition Patient General Information Nutritional Screening High Risk Diagnosis possible DC Pertinent Medical Hx/Surgical Hx afib, BOPH, stage4 blader CA, PEG/Gtube, trach Subjective Information Pt seen in airebone isolation room. Per RN, pt is geting bolus feeding 5 times daily. Current Diet Order/ Nutrition Support Jevity 1.2 250ml x 5 daily Pertinent Medications seroquel Pertinent Labs 05/06 BUN 45 Nutritional Hx/Data Height 1.68 m Height (Calculated Centimeters) 167.6 Current Weight (lbs) 73.936 kg Weight (Calculated Kilograms) 73.9 Weight (Calculated Grams) 56851.6 [place] Body Weight 142 Body Mass Index (BMI) 26.3 Weight Status Overweight GI Symptoms GI Symptoms None Last BM 05/05 Difficult in: None Skin Integrity/Comment: skin tear reddended to lwoer buttocks Estimated Nutritional Goals BEE in Kcals: Using Current wt Calories/Kcals/Kg 20-25 Kcals Calculated 9175-5172 Protein: Using Current wt Protein g/k.8-1 Protein Calculated 59-74 Fluid: ml 1480-1850ml (1ml/kcal) Nutritional Problem No current Nutrition Prob Problem N/A Malnutrition Alert Is there a minimum of two criteria No selected? Query Text:Check all the applicable criteria. A minimum of two criteria are recommended for diagnosis of either severe or non-severe malnutrition. Malnutrition Related to Morbid Obesity Malnutrition related to morbid obesity No Intervention/Recommendation Comments 1. Continue with current TF regimen. It provides 1500kcal, 69g protein, 1008ml free water, meeting 100% of nutritional needs 2. Monitor tolerance, wt, skin integrity and labs 3. F/U as moderate risk in 3-5 days Expected Outcomes/Goals Expected Outcomes/Goals 1. Pt to meet at least 90% of nutritional needs via nutrition support with tolerance 2. Wt stability, skin to remain intact, labs to approach WNL.
[2018-05-09] MEDS: cefTRIAXone 1 GM in Sodium Chloride 0.9% 50 ML IV SCH (09:54)
[2018-05-09] MEDS: Polyvinyl Alcohol Ophth Soln 15 mL Bottle EACH EYE SCH (09:56)
--- NOTE | 2018-05-09 12:14 | Internal Medicine Prog Note ---
Internal Medicine Subjective - Subjective Patient seen and examined:: chart reviewed Patient is:: awake, verbal, interactive, talking, other (no vents) Patient Complaints of:: other (Afib x 3.) Per staff patient has:: no adverse event, no episodes of fall, tolerating meds Internal Medicine Objective - Results Result Diagrams: 05/07/18 10:45 05/07/18 10:45 Recent Labs: Laboratory Last Values WBC 5.3 Th/cmm (4.8-10.8) 05/07/18 10:45 RBC 3.96 Mil/cmm (3.80-5.80) 05/07/18 10:45 Hgb 11.4 gm/dL (12-16) L 05/07/18 10:45 Hct 34.8 % (41.0-60) L 05/07/18 10:45 MCV 87.8 fl (80-99) 05/07/18 10:45 MCH 28.8 pg (27.0-31.0) 05/07/18 10:45 MCHC Differential 32.8 pg (28.0-36.0) 05/07/18 10:45 RDW 14.5 % (11.5-20.0) 05/07/18 10:45 Plt Count 108 Th/cmm (150-400) L 05/07/18 10:45 MPV 11.4 fl 05/07/18 10:45 Neutrophils % 55.5 % (40.0-80.0) 05/07/18 10:45 Lymphocytes % 26.6 % (20.0-50.0) 05/07/18 10:45 Monocytes % 12.5 % (2.0-10.0) H 05/07/18 10:45 Eosinophils % 4.9 % (0.0-5.0) 05/07/18 10:45 Basophils % 0.5 % (0.0-2.0) 05/07/18 10:45 Sodium 142 mEq/L (136-145) 05/07/18 10:45 Potassium 4.3 mEq/L (3.5-5.1) 05/07/18 10:45 Chloride 109 mEq/L (98-107) H 05/07/18 10:45 Carbon Dioxide 25.7 mEq/L (21.0-31.0) 05/07/18 10:45 Anion Gap 11.6 (7.0-16.0) 05/07/18 10:45 BUN 48 mg/dL (7-25) H 05/07/18 10:45 Creatinine 1.0 mg/dL (0.7-1.3) 05/07/18 10:45 Est GFR ( Amer) TNP 05/07/18 10:45 Est GFR (Non-Af Amer) TNP 05/07/18 10:45 BUN/Creatinine Ratio 48.0 05/07/18 10:45 Glucose 100 mg/dL (70-105) 05/07/18 10:45 POC Glucose 88 MG/DL (70 - 105) 05/05/18 10:00 Calcium 9.1 mg/dL (8.6-10.3) 05/07/18 10:45 Total Bilirubin 0.4 mg/dL (0.3-1.0) 05/05/18 02:15 AST 21 U/L (13-39) 05/05/18 02:15 ALT 12 U/L (7-52) 05/05/18 02:15 Alkaline Phosphatase 90 U/L (34-104) 05/05/18 02:15 Troponin I 0.01 ng/mL (0.01-0.05) 05/05/18 02:15 Total Protein 8.0 gm/dL (6.0-8.3) 05/05/18 02:15 Albumin 3.5 gm/dL (4.2-5.5) L 05/05/18 02:15 Globulin 4.5 gm/dL 05/05/18 02:15 Albumin/Globulin Ratio 0.8 (1.0-1.8) L 05/05/18 02:15 - Physical Exam Vitals and I&O: Vital Signs Temp 97.3 F 05/09/18 12:00 Pulse 81 05/09/18 12:00 Resp 18 05/09/18 12:00 BP 119/61 05/09/18 12:00 Pulse Ox 97 05/09/18 12:00 Intake & Output 05/08/18 05/09/18 05/09/18 18:59 06:59 18:59 Intake Total 1050 237 Balance 1050 237 Weight (lbs) 74.843 kg 74.389 kg Intake: Intake, IV Amount 50 cefTRIAXone 1 gm In 50 Sodium Chloride 0.9% 50 ml @ 100 mls/hr IV Q24HR [facility] Rx#:[id number] Tube Feeding 1000 237 Other: # Voids 3 # Bowel Movements 0 Weight Source Bedscale Estimated Active Medications: Current Medications Lipase/Protease/Amylase (Zenpep 5,000 U) 1 cap PO BID [facility] Stop: 07/04/18 16:59 Last Admin: 05/09/18 09:56 Dose: 1 cap Artificial Tears (Artificial Tears Ophth Soln) 2 drop EACH EYE DAILY [facility] Stop: 07/05/18 08:59 Last Admin: 05/09/18 09:56 Dose: 2 drop Benazepril HCl (Lotensin) 10 mg GT DAILY [facility] Stop: 07/05/18 08:59 Last Admin: 05/09/18 09:55 Dose: 10 mg Donepezil HCl (Aricept) 15 mg GT DAILY [facility] Stop: 07/05/18 08:59 Last Admin: 05/09/18 09:56 Dose: 15 mg Duloxetine HCl (Cymbalta) 60 mg PO DAILY [facility] Stop: 07/05/18 08:59 Last Admin: 05/09/18 09:56 Dose: 60 mg Glycopyrrolate (Robinul) 1 mg PO BID [facility] Stop: 07/04/18 16:59 Last Admin: 05/09/18 09:56 Dose: 1 mg Guaifenesin (Robitussin) 200 mg GT Q6HR PRN PRN Reason: Cough Stop: 07/04/18 13:25 Ceftriaxone Sodium 1 gm/ (Sodium Chloride) 50 mls @ 100 mls/hr IV Q24HR [facility] Stop: 07/04/18 10:06 Last Admin: 05/09/18 09:54 Dose: 100 mls/hr Mupirocin (Bactroban Oint) 1 appl NS BID [facility] Stop: 05/12/18 09:01 Last Admin: 05/09/18 09:56 Dose: 1 appl Quetiapine Fumarate (Seroquel) 100 mg GT BID [facility]; Protocol Stop: 07/04/18 16:59 Last Admin: 05/09/18 10:00 Dose: 100 mg Sodium Bicarbonate (Sodium Bicarbonate) 650 mg GT BID [facility]; Protocol Stop: 07/04/18 16:59 Last Admin: 05/09/18 09:57 Dose: 650 mg Tamsulosin HCl (Flomax) 0.4 mg GT DAILY [facility] Stop: 07/05/18 08:59 Last Admin: 05/09/18 09:57 Dose: 0.4 mg Valproate Sodium (Depakene) 500 mg GT HS [facility]; Protocol Stop: 07/04/18 20:59 Last Admin: 05/08/18 20:48 Dose: 500 mg Physical Exam: 82 y/o male patient recently had a Chest x-ray done on 05/04/18 which showed probable right lower lobe pneumonia, suspected Tuberculosis. CT scan was also done on patient, which revealed Cavitary lesion, right lower lobe. General: weak, alert HEENT: NC/AT, PERRLA Neck: + trach Lungs: wheezing, rales Cardiovascular: RRR, Normal S1 Abdomen: soft, non-tender, non-distended Extremities: excoriation Neurological: alert, muscle weakness Internal Medicine Assmt/Plan - Assessment Assessment: Cavitary lesion, right lower lobe. BPH. Atrial Fibrillation. Stage 4 bladder cancer. - Plan Plan: Continuation of care. Continue present antibiotic and meds as directed. Monitor Labs, Diet. Trach care. Fall precaution. Pain management. TB workup. Followup with Dr. Abbi Leyva. Continue current treatment plan as ordered. Nutritional Asmnt/Malnutr-PDOC - Dietary Evaluation Malnutrition Findings (Please click <Entered> for more info): Nutritional Asmnt/Malnutrition Start: 05/06/18 15: 50 Text: Status: Complete Freq: Protocol: Document 05/06/18 15:50 LCHENG (Rec: 05/06/18 16:06 LCHENG [email or web address]) Nutritional Asmnt/Malnutrition Patient General Information Nutritional Screening High Risk Diagnosis possible DC Pertinent Medical Hx/Surgical Hx afib, BOPH, stage4 blader CA, PEG/Gtube, trach Subjective Information Pt seen in airebone isolation room. Per RN, pt is geting bolus feeding 5 times daily. Current Diet Order/ Nutrition Support Jevity 1.2 250ml x 5 daily Pertinent Medications seroquel Pertinent Labs 05/06 BUN 45 Nutritional Hx/Data Height 1.68 m Height (Calculated Centimeters) 167.6 Current Weight (lbs) 73.936 kg Weight (Calculated Kilograms) 73.9 Weight (Calculated Grams) 73557.6 [place] Body Weight 142 Body Mass Index (BMI) 26.3 Weight Status Overweight GI Symptoms GI Symptoms None Last BM 05/05 Difficult in: None Skin Integrity/Comment: skin tear reddended to lwoer buttocks Estimated Nutritional Goals BEE in Kcals: Using Current wt Calories/Kcals/Kg 20-25 Kcals Calculated 5670-0306 Protein: Using Current wt Protein g/k.8-1 Protein Calculated 59-74 Fluid: ml 1480-1850ml (1ml/kcal) Nutritional Problem No current Nutrition Prob Problem N/A Malnutrition Alert Is there a minimum of two criteria No selected? Query Text:Check all the applicable criteria. A minimum of two criteria are recommended for diagnosis of either severe or non-severe malnutrition. Malnutrition Related to Morbid Obesity Malnutrition related to morbid obesity No Intervention/Recommendation Comments 1. Continue with current TF regimen. It provides 1500kcal, 69g protein, 1008ml free water, meeting 100% of nutritional needs 2. Monitor tolerance, wt, skin integrity and labs 3. F/U as moderate risk in 3-5 days Expected Outcomes/Goals Expected Outcomes/Goals 1. Pt to meet at least 90% of nutritional needs via nutrition support with tolerance 2. Wt stability, skin to remain intact, labs to approach WNL.
[2018-05-10] MEDS: Polyvinyl Alcohol Ophth Soln 15 mL Bottle EACH EYE SCH (08:45)
--- NOTE | 2018-05-10 10:00 | Internal Medicine Prog Note ---
Internal Medicine Subjective - Subjective Service Date: 05/10/18 Patient seen and examined:: chart reviewed Patient is:: awake, verbal, in bed Patient Complaints of:: other (Afib x 3.) Per staff patient has:: no adverse event, no episodes of fall, tolerating meds Internal Medicine Objective - Results Result Diagrams: 05/07/18 10:45 05/07/18 10:45 Recent Labs: Laboratory Last Values WBC 5.3 Th/cmm (4.8-10.8) 05/07/18 10:45 RBC 3.96 Mil/cmm (3.80-5.80) 05/07/18 10:45 Hgb 11.4 gm/dL (12-16) L 05/07/18 10:45 Hct 34.8 % (41.0-60) L 05/07/18 10:45 MCV 87.8 fl (80-99) 05/07/18 10:45 MCH 28.8 pg (27.0-31.0) 05/07/18 10:45 MCHC Differential 32.8 pg (28.0-36.0) 05/07/18 10:45 RDW 14.5 % (11.5-20.0) 05/07/18 10:45 Plt Count 108 Th/cmm (150-400) L 05/07/18 10:45 MPV 11.4 fl 05/07/18 10:45 Neutrophils % 55.5 % (40.0-80.0) 05/07/18 10:45 Lymphocytes % 26.6 % (20.0-50.0) 05/07/18 10:45 Monocytes % 12.5 % (2.0-10.0) H 05/07/18 10:45 Eosinophils % 4.9 % (0.0-5.0) 05/07/18 10:45 Basophils % 0.5 % (0.0-2.0) 05/07/18 10:45 Sodium 142 mEq/L (136-145) 05/07/18 10:45 Potassium 4.3 mEq/L (3.5-5.1) 05/07/18 10:45 Chloride 109 mEq/L (98-107) H 05/07/18 10:45 Carbon Dioxide 25.7 mEq/L (21.0-31.0) 05/07/18 10:45 Anion Gap 11.6 (7.0-16.0) 05/07/18 10:45 BUN 48 mg/dL (7-25) H 05/07/18 10:45 Creatinine 1.0 mg/dL (0.7-1.3) 05/07/18 10:45 Est GFR ( Amer) TNP 05/07/18 10:45 Est GFR (Non-Af Amer) TNP 05/07/18 10:45 BUN/Creatinine Ratio 48.0 05/07/18 10:45 Glucose 100 mg/dL (70-105) 05/07/18 10:45 POC Glucose 88 MG/DL (70 - 105) 05/05/18 10:00 Calcium 9.1 mg/dL (8.6-10.3) 05/07/18 10:45 Total Bilirubin 0.4 mg/dL (0.3-1.0) 05/05/18 02:15 AST 21 U/L (13-39) 05/05/18 02:15 ALT 12 U/L (7-52) 05/05/18 02:15 Alkaline Phosphatase 90 U/L (34-104) 05/05/18 02:15 Troponin I 0.01 ng/mL (0.01-0.05) 05/05/18 02:15 Total Protein 8.0 gm/dL (6.0-8.3) 05/05/18 02:15 Albumin 3.5 gm/dL (4.2-5.5) L 05/05/18 02:15 Globulin 4.5 gm/dL 05/05/18 02:15 Albumin/Globulin Ratio 0.8 (1.0-1.8) L 05/05/18 02:15 - Physical Exam Vitals and I&O: Vital Signs Temp 97.3 F 05/10/18 09:27 Pulse 73 05/10/18 09:27 Resp 19 05/10/18 09:27 BP 123/58 05/10/18 09:27 Pulse Ox 95 05/10/18 09:27 Intake & Output 05/09/18 05/10/18 05/10/18 18:59 06:59 18:59 Intake Total 891 80 Output Total 375 Balance 891 -295 Weight (lbs) 74.389 kg 68.039 kg Intake: Tube Feeding 891 80 Output: Urine 375 Other: # Voids 2 # Bowel Movements 1 Weight Source Bedscale Estimated Active Medications: Current Medications Lipase/Protease/Amylase (Zenpep 5,000 U) 1 cap PO BID [facility] Stop: 07/04/18 16:59 Last Admin: 05/10/18 08:44 Dose: 1 cap Artificial Tears (Artificial Tears Ophth Soln) 2 drop EACH EYE DAILY [facility] Stop: 07/05/18 08:59 Last Admin: 05/10/18 08:45 Dose: 2 drop Benazepril HCl (Lotensin) 10 mg GT DAILY [facility] Stop: 07/05/18 08:59 Last Admin: 05/10/18 08:44 Dose: 10 mg Donepezil HCl (Aricept) 15 mg GT DAILY [facility] Stop: 07/05/18 08:59 Last Admin: 05/10/18 08:43 Dose: 15 mg Duloxetine HCl (Cymbalta) 60 mg PO DAILY [facility] Stop: 07/05/18 08:59 Last Admin: 05/10/18 08:44 Dose: 60 mg Glycopyrrolate (Robinul) 1 mg PO BID [facility] Stop: 07/04/18 16:59 Last Admin: 05/10/18 08:44 Dose: 1 mg Guaifenesin (Robitussin) 200 mg GT Q6HR PRN PRN Reason: Cough Stop: 07/04/18 13:25 Ceftriaxone Sodium 1 gm/ (Sodium Chloride) 50 mls @ 100 mls/hr IV Q24HR [facility] Stop: 07/04/18 10:06 Last Admin: 05/09/18 09:54 Dose: 100 mls/hr Mupirocin (Bactroban Oint) 1 appl NS BID [facility] Stop: 05/12/18 09:01 Last Admin: 05/10/18 08:47 Dose: 1 appl Quetiapine Fumarate (Seroquel) 100 mg GT BID [facility]; Protocol Stop: 07/04/18 16:59 Last Admin: 05/10/18 08:44 Dose: 100 mg Sodium Bicarbonate (Sodium Bicarbonate) 650 mg GT BID [facility]; Protocol Stop: 07/04/18 16:59 Last Admin: 05/10/18 08:44 Dose: 650 mg Tamsulosin HCl (Flomax) 0.4 mg GT DAILY [facility] Stop: 07/05/18 08:59 Last Admin: 05/10/18 08:44 Dose: 0.4 mg Valproate Sodium (Depakene) 500 mg GT HS [facility]; Protocol Stop: 07/04/18 20:59 Last Admin: 05/09/18 20:20 Dose: 500 mg Physical Exam: 82 y/o male patient recently had a Chest x-ray done on 05/04/18 which showed probable right lower lobe pneumonia, suspected Tuberculosis. CT scan was also done on patient, which revealed Cavitary lesion, right lower lobe. General: weak, alert HEENT: NC/AT, PERRLA Neck: + trach Lungs: wheezing, rales Cardiovascular: RRR, Normal S1 Abdomen: soft, non-tender, non-distended Extremities: excoriation Neurological: alert, muscle weakness Internal Medicine Assmt/Plan - Assessment Assessment: Cavitary lesion, right lower lobe. BPH. Atrial Fibrillation. Stage 4 bladder cancer. - Plan Plan: Continuation of care. Continue present antibiotic and meds as directed. Monitor Labs, Diet. Trach care. Fall precaution. Pain management. TB workup. Followup with Dr. Abbi Leyva. Continue current treatment plan as ordered. Nutritional Asmnt/Malnutr-PDOC - Dietary Evaluation Malnutrition Findings (Please click <Entered> for more info): Nutritional Asmnt/Malnutrition Start: 05/06/18 15: 50 Text: Status: Complete Freq: Protocol: Document 05/06/18 15:50 LCHENG (Rec: 05/06/18 16:06 LCHENG [email or web address]) Nutritional Asmnt/Malnutrition Patient General Information Nutritional Screening High Risk Diagnosis possible DC Pertinent Medical Hx/Surgical Hx afib, BOPH, stage4 blader CA, PEG/Gtube, trach Subjective Information Pt seen in a[facility]bone isolation room. Per RN, pt is geting bolus feeding 5 times daily. Current Diet Order/ Nutrition Support Jevity 1.2 250ml x 5 daily Pertinent Medications seroquel Pertinent Labs 05/06 BUN 45 Nutritional Hx/Data Height 1.68 m Height (Calculated Centimeters) 167.6 Current Weight (lbs) 73.936 kg Weight (Calculated Kilograms) 73.9 Weight (Calculated Grams) 01031.6 [place] Body Weight 142 Body Mass Index (BMI) 26.3 Weight Status Overweight GI Symptoms GI Symptoms None Last BM 05/05 Difficult in: None Skin Integrity/Comment: skin tear reddended to lwoer buttocks Estimated Nutritional Goals BEE in Kcals: Using Current wt Calories/Kcals/Kg 20-25 Kcals Calculated 0756-3965 Protein: Using Current wt Protein g/k.8-1 Protein Calculated 59-74 Fluid: ml 1480-1850ml (1ml/kcal) Nutritional Problem No current Nutrition Prob Problem N/A Malnutrition Alert Is there a minimum of two criteria No selected? Query Text:Check all the applicable criteria. A minimum of two criteria are recommended for diagnosis of either severe or non-severe malnutrition. Malnutrition Related to Morbid Obesity Malnutrition related to morbid obesity No Intervention/Recommendation Comments 1. Continue with current TF regimen. It provides 1500kcal, 69g protein, 1008ml free water, meeting 100% of nutritional needs 2. Monitor tolerance, wt, skin integrity and labs 3. F/U as moderate risk in 3-5 days Expected Outcomes/Goals Expected Outcomes/Goals 1. Pt to meet at least 90% of nutritional needs via nutrition support with tolerance 2. Wt stability, skin to remain intact, labs to approach WNL.
--- NOTE | 2018-05-10 10:33 | Progress Notes ---
DATE: 05/09/2018 PULMONARY PROGRESS NOTE OBJECTIVE: GENERAL: The patient appears to be okay, comfortable, not much secretion. VITAL SIGNS: Temperature 97.3, pulse 81, respiration 18, blood pressure 90/61, saturation 97%. CHEST: Good breath sounds. No wheezing or crackles. HEART: Regular rate and rhythm. ABDOMEN: Soft. No tenderness. EXTREMITIES: No edema. LABORATORY DATA: WBC is 5.3, . Sodium 142, potassium 4.3, BUN is 48, creatinine 1.0. Sputum cultures showed Proteus and Pseudomonas. AFB negative x 3. Quantiferon testing is still pending. IMPRESSION: This is an 82-year-old male with bronchitis, had a cavitary lesion that according to and his son has been present at [place] and has been tested for TB in the past and has no changes in that. PLAN: The patient can be off isolation waiting Health Department to clear him. He can continue antibiotics per ID and he can be discharged as far as pulmonary is concerned. discussed with the patient and his son. JOB# [id number] MTDD
[2018-05-10] MEDS: cefTRIAXone 1 GM in Sodium Chloride 0.9% 50 ML IV SCH (11:20)
--- NOTE | 2018-05-11 07:08 | Infectious Disease Prog Note ---
Infectious Disease Subjective - Review of Systems Service Date: 05/11/18 Subjective: There is no new change, no fever. Infectious Disease Objective - Results Result Diagrams: 05/07/18 10:45 05/07/18 10:45 Recent Labs: Laboratory Last Values WBC 5.3 Th/cmm (4.8-10.8) 05/07/18 10:45 RBC 3.96 Mil/cmm (3.80-5.80) 05/07/18 10:45 Hgb 11.4 gm/dL (12-16) L 05/07/18 10:45 Hct 34.8 % (41.0-60) L 05/07/18 10:45 MCV 87.8 fl (80-99) 05/07/18 10:45 MCH 28.8 pg (27.0-31.0) 05/07/18 10:45 MCHC Differential 32.8 pg (28.0-36.0) 05/07/18 10:45 RDW 14.5 % (11.5-20.0) 05/07/18 10:45 Plt Count 108 Th/cmm (150-400) L 05/07/18 10:45 MPV 11.4 fl 05/07/18 10:45 Neutrophils % 55.5 % (40.0-80.0) 05/07/18 10:45 Lymphocytes % 26.6 % (20.0-50.0) 05/07/18 10:45 Monocytes % 12.5 % (2.0-10.0) H 05/07/18 10:45 Eosinophils % 4.9 % (0.0-5.0) 05/07/18 10:45 Basophils % 0.5 % (0.0-2.0) 05/07/18 10:45 Sodium 142 mEq/L (136-145) 05/07/18 10:45 Potassium 4.3 mEq/L (3.5-5.1) 05/07/18 10:45 Chloride 109 mEq/L (98-107) H 05/07/18 10:45 Carbon Dioxide 25.7 mEq/L (21.0-31.0) 05/07/18 10:45 Anion Gap 11.6 (7.0-16.0) 05/07/18 10:45 BUN 48 mg/dL (7-25) H 05/07/18 10:45 Creatinine 1.0 mg/dL (0.7-1.3) 05/07/18 10:45 Est GFR ( Amer) TNP 05/07/18 10:45 Est GFR (Non-Af Amer) TNP 05/07/18 10:45 BUN/Creatinine Ratio 48.0 05/07/18 10:45 Glucose 100 mg/dL (70-105) 05/07/18 10:45 POC Glucose 88 MG/DL (70 - 105) 05/05/18 10:00 Calcium 9.1 mg/dL (8.6-10.3) 05/07/18 10:45 Total Bilirubin 0.4 mg/dL (0.3-1.0) 05/05/18 02:15 AST 21 U/L (13-39) 05/05/18 02:15 ALT 12 U/L (7-52) 05/05/18 02:15 Alkaline Phosphatase 90 U/L (34-104) 05/05/18 02:15 Troponin I 0.01 ng/mL (0.01-0.05) 05/05/18 02:15 Total Protein 8.0 gm/dL (6.0-8.3) 05/05/18 02:15 Albumin 3.5 gm/dL (4.2-5.5) L 05/05/18 02:15 Globulin 4.5 gm/dL 05/05/18 02:15 Albumin/Globulin Ratio 0.8 (1.0-1.8) L 05/05/18 02:15 - Physical Exam Vitals and I&O: Vital Signs Temp 98.2 F 05/11/18 04:00 Pulse 68 05/11/18 04:00 Resp 17 05/11/18 04:00 BP 117/63 05/11/18 04:00 Pulse Ox 94 05/11/18 04:00 Intake & Output 05/10/18 05/11/18 05/11/18 18:59 06:59 18:59 Output Total 325 Balance -325 Weight (lbs) 74.389 kg Output: Urine 325 Other: Weight Source Estimated Active Medications: Current Medications Lipase/Protease/Amylase (Zenpep 5,000 U) 1 cap PO BID [facility] Stop: 07/04/18 16:59 Last Admin: 05/10/18 17:50 Dose: 1 cap Artificial Tears (Artificial Tears Ophth Soln) 2 drop EACH EYE DAILY [facility] Stop: 07/05/18 08:59 Last Admin: 05/10/18 08:45 Dose: 2 drop Benazepril HCl (Lotensin) 10 mg GT DAILY [facility] Stop: 07/05/18 08:59 Last Admin: 05/10/18 08:44 Dose: 10 mg Donepezil HCl (Aricept) 15 mg GT DAILY [facility] Stop: 07/05/18 08:59 Last Admin: 05/10/18 08:43 Dose: 15 mg Duloxetine HCl (Cymbalta) 60 mg PO DAILY [facility] Stop: 07/05/18 08:59 Last Admin: 05/10/18 08:44 Dose: 60 mg Glycopyrrolate (Robinul) 1 mg PO BID [facility] Stop: 07/04/18 16:59 Last Admin: 05/10/18 17:49 Dose: 1 mg Guaifenesin (Robitussin) 200 mg GT Q6HR PRN PRN Reason: Cough Stop: 07/04/18 13:25 Ceftriaxone Sodium 1 gm/ (Sodium Chloride) 50 mls @ 100 mls/hr IV Q24HR [facility] Stop: 07/04/18 10:06 Last Admin: 05/10/18 11:20 Dose: 100 mls/hr Mupirocin (Bactroban Oint) 1 appl NS BID [facility] Stop: 05/12/18 09:01 Last Admin: 05/10/18 17:50 Dose: 1 appl Quetiapine Fumarate (Seroquel) 100 mg GT BID [facility]; Protocol Stop: 07/04/18 16:59 Last Admin: 05/10/18 17:50 Dose: 100 mg Sodium Bicarbonate (Sodium Bicarbonate) 650 mg GT BID [facility]; Protocol Stop: 07/04/18 16:59 Last Admin: 05/10/18 17:50 Dose: 650 mg Tamsulosin HCl (Flomax) 0.4 mg GT DAILY [facility] Stop: 07/05/18 08:59 Last Admin: 05/10/18 08:44 Dose: 0.4 mg Valproate Sodium (Depakene) 500 mg GT HS [facility]; Protocol Stop: 07/04/18 20:59 Last Admin: 05/10/18 21:11 Dose: 500 mg General: no acute distress, well developed, well nourished HEENT: atraumatic, normocephalic, PERRLA, EOMI Neck: supple, no thyromegaly Cardiovascular: S1S2, regular Lungs: clear to auscultation bilaterally, clear to percussion Abdomen: soft, no tender, no distended Extremities: no cyanosis, no clubbing, no edema Neurological: awake, alert, oriented Skin: intact Infectious Disease Assmt/Plan - Assessment Assessment: 1. Cavitary lesion in the lung. seems less likely Pulmonary TB. Sputum for AFB smear is negative x3, MTB PCR pending,. TB gold quantiferon is negative. 2, BPH. 3. Afig. 4. Prostate CA. - Plan Plan: When cleared by the public health/Infection Control DEPT patient can be reomoved from isolation and dc patient. Nutritional Asmnt/Malnutr-PDOC - Dietary Evaluation Malnutrition Findings (Please click <Entered> for more info): Nutritional Asmnt/Malnutrition Start: 05/06/18 15: 50 Text: Status: Complete Freq: Protocol: Document 05/06/18 15:50 LCHENG (Rec: 05/06/18 16:06 LCHENG [email or web address]) Nutritional Asmnt/Malnutrition Patient General Information Nutritional Screening High Risk Diagnosis possible DC Pertinent Medical Hx/Surgical Hx afib, BOPH, stage4 blader CA, PEG/Gtube, trach Subjective Information Pt seen in airebone isolation room. Per RN, pt is geting bolus feeding 5 times daily. Current Diet Order/ Nutrition Support Jevity 1.2 250ml x 5 daily Pertinent Medications seroquel Pertinent Labs 05/06 BUN 45 Nutritional Hx/Data Height 1.68 m Height (Calculated Centimeters) 167.6 Current Weight (lbs) 73.936 kg Weight (Calculated Kilograms) 73.9 Weight (Calculated Grams) 35168.6 [place] Body Weight 142 Body Mass Index (BMI) 26.3 Weight Status Overweight GI Symptoms GI Symptoms None Last BM 05/05 Difficult in: None Skin Integrity/Comment: skin tear reddended to lwoer buttocks Estimated Nutritional Goals BEE in Kcals: Using Current wt Calories/Kcals/Kg 20-25 Kcals Calculated 8659-0121 Protein: Using Current wt Protein g/k.8-1 Protein Calculated 59-74 Fluid: ml 1480-1850ml (1ml/kcal) Nutritional Problem No current Nutrition Prob Problem N/A Malnutrition Alert Is there a minimum of two criteria No selected? Query Text:Check all the applicable criteria. A minimum of two criteria are recommended for diagnosis of either severe or non-severe malnutrition. Malnutrition Related to Morbid Obesity Malnutrition related to morbid obesity No Intervention/Recommendation Comments 1. Continue with current TF regimen. It provides 1500kcal, 69g protein, 1008ml free water, meeting 100% of nutritional needs 2. Monitor tolerance, wt, skin integrity and labs 3. F/U as moderate risk in 3-5 days Expected Outcomes/Goals Expected Outcomes/Goals 1. Pt to meet at least 90% of nutritional needs via nutrition support with tolerance 2. Wt stability, skin to remain intact, labs to approach WNL.
[2018-05-11] MEDS: Polyvinyl Alcohol Ophth Soln 15 mL Bottle EACH EYE SCH (08:37)
[2018-05-11] MEDS: cefTRIAXone 1 GM in Sodium Chloride 0.9% 50 ML IV SCH (10:02)
--- NOTE | 2018-05-11 11:14 | Progress Notes ---
DATE: 05/10/2018 SUBJECTIVE: The patient appears to be comfortable, in no distress. Not much secretions. PHYSICAL EXAMINATION. VITAL SIGNS: Temperature 97.9, pulse 65, respirations 18, blood pressure 97/55, saturation 95%. CHEST: Good breath sounds, no wheezing, no crackles. HEART: Regular rate and rhythm. No murmurs. ABDOMEN: Soft. EXTREMITIES: No edema. LABORATORY DATA: WBC 5.3, hemoglobin 8.4. Sodium 142, potassium 4.3, BUN is 48, creatinine 1.0. IMPRESSION: This is an 82-year-old male with history of bladder CA, chronic respiratory failure, chronic cavitary lesion, bronchitis, resolved; AFB negative. Awaiting clearance from [facility] and the patient can be discharged. JOB# [id number]
[2018-05-12] MEDS: Polyvinyl Alcohol Ophth Soln 15 mL Bottle EACH EYE SCH ×2 (08:52→09:02)
--- NOTE | 2018-05-12 09:10 | Internal Medicine Prog Note ---
Internal Medicine Subjective - Subjective Service Date: 05/12/18 Patient is:: awake, verbal, interactive, in bed, denies any new complaints Patient Complaints of:: other (Afib x 3.) Per staff patient has:: no adverse event, no episodes of fall, tolerating meds Internal Medicine Objective - Results Result Diagrams: 05/07/18 10:45 05/07/18 10:45 Recent Labs: Laboratory Last Values WBC 5.3 Th/cmm (4.8-10.8) 05/07/18 10:45 RBC 3.96 Mil/cmm (3.80-5.80) 05/07/18 10:45 Hgb 11.4 gm/dL (12-16) L 05/07/18 10:45 Hct 34.8 % (41.0-60) L 05/07/18 10:45 MCV 87.8 fl (80-99) 05/07/18 10:45 MCH 28.8 pg (27.0-31.0) 05/07/18 10:45 MCHC Differential 32.8 pg (28.0-36.0) 05/07/18 10:45 RDW 14.5 % (11.5-20.0) 05/07/18 10:45 Plt Count 108 Th/cmm (150-400) L 05/07/18 10:45 MPV 11.4 fl 05/07/18 10:45 Neutrophils % 55.5 % (40.0-80.0) 05/07/18 10:45 Lymphocytes % 26.6 % (20.0-50.0) 05/07/18 10:45 Monocytes % 12.5 % (2.0-10.0) H 05/07/18 10:45 Eosinophils % 4.9 % (0.0-5.0) 05/07/18 10:45 Basophils % 0.5 % (0.0-2.0) 05/07/18 10:45 Sodium 142 mEq/L (136-145) 05/07/18 10:45 Potassium 4.3 mEq/L (3.5-5.1) 05/07/18 10:45 Chloride 109 mEq/L (98-107) H 05/07/18 10:45 Carbon Dioxide 25.7 mEq/L (21.0-31.0) 05/07/18 10:45 Anion Gap 11.6 (7.0-16.0) 05/07/18 10:45 BUN 48 mg/dL (7-25) H 05/07/18 10:45 Creatinine 1.0 mg/dL (0.7-1.3) 05/07/18 10:45 Est GFR ( Amer) TNP 05/07/18 10:45 Est GFR (Non-Af Amer) TNP 05/07/18 10:45 BUN/Creatinine Ratio 48.0 05/07/18 10:45 Glucose 100 mg/dL (70-105) 05/07/18 10:45 POC Glucose 88 MG/DL (70 - 105) 05/05/18 10:00 Calcium 9.1 mg/dL (8.6-10.3) 05/07/18 10:45 Total Bilirubin 0.4 mg/dL (0.3-1.0) 05/05/18 02:15 AST 21 U/L (13-39) 05/05/18 02:15 ALT 12 U/L (7-52) 05/05/18 02:15 Alkaline Phosphatase 90 U/L (34-104) 05/05/18 02:15 Troponin I 0.01 ng/mL (0.01-0.05) 05/05/18 02:15 Total Protein 8.0 gm/dL (6.0-8.3) 05/05/18 02:15 Albumin 3.5 gm/dL (4.2-5.5) L 05/05/18 02:15 Globulin 4.5 gm/dL 05/05/18 02:15 Albumin/Globulin Ratio 0.8 (1.0-1.8) L 05/05/18 02:15 - Physical Exam Vitals and I&O: Vital Signs Temp 97.9 F 05/12/18 08:00 Pulse 57 05/12/18 08:53 Resp 18 05/12/18 08:00 BP 102/63 05/12/18 08:53 Pulse Ox 100 05/12/18 08:00 Intake & Output 05/11/18 05/12/18 05/12/18 18:59 06:59 18:59 Intake Total 50 50 674 Balance 50 50 674 Weight (lbs) 74.389 kg 74.389 kg Intake: Intake, IV Amount 50 cefTRIAXone 1 gm In 50 Sodium Chloride 0.9% 50 ml @ 100 mls/hr IV Q24HR [facility] Rx#:[id number] Oral 0 0 Tube Feeding 474 Other 50 200 Other: # Voids 3 # Bowel Movements 0 Weight Source Bedscale Bedscale Active Medications: Current Medications Lipase/Protease/Amylase (Zenpep 5,000 U) 1 cap PO BID [facility] Stop: 07/04/18 16:59 Last Admin: 05/12/18 08:52 Dose: 1 cap Artificial Tears (Artificial Tears Ophth Soln) 2 drop EACH EYE DAILY [facility] Stop: 07/05/18 08:59 Last Admin: 05/12/18 09:02 Dose: Not Given Benazepril HCl (Lotensin) 10 mg GT DAILY [facility] Stop: 07/05/18 08:59 Last Admin: 05/12/18 08:53 Dose: Not Given Donepezil HCl (Aricept) 15 mg GT DAILY [facility] Stop: 07/05/18 08:59 Last Admin: 05/12/18 08:51 Dose: 15 mg Duloxetine HCl (Cymbalta) 60 mg PO DAILY [facility] Stop: 07/05/18 08:59 Last Admin: 05/12/18 08:51 Dose: 60 mg Glycopyrrolate (Robinul) 1 mg PO BID [facility] Stop: 07/04/18 16:59 Last Admin: 05/12/18 08:52 Dose: 1 mg Guaifenesin (Robitussin) 200 mg GT Q6HR PRN PRN Reason: Cough Stop: 07/04/18 13:25 Ceftriaxone Sodium 1 gm/ (Sodium Chloride) 50 mls @ 100 mls/hr IV Q24HR [facility] Stop: 07/04/18 10:06 Last Infusion: 05/11/18 10:32 Dose: Infused Quetiapine Fumarate (Seroquel) 100 mg GT BID [facility]; Protocol Stop: 07/04/18 16:59 Last Admin: 05/12/18 08:51 Dose: 100 mg Sodium Bicarbonate (Sodium Bicarbonate) 650 mg GT BID [facility]; Protocol Stop: 07/04/18 16:59 Last Admin: 05/12/18 08:51 Dose: 650 mg Tamsulosin HCl (Flomax) 0.4 mg GT DAILY [facility] Stop: 07/05/18 08:59 Last Admin: 05/12/18 08:52 Dose: 0.4 mg Valproate Sodium (Depakene) 500 mg GT HS [facility]; Protocol Stop: 07/04/18 20:59 Last Admin: 05/11/18 20:48 Dose: 500 mg Physical Exam: 82 y/o male patient recently had a Chest x-ray done on 05/04/18 which showed probable right lower lobe pneumonia, suspected Tuberculosis. CT scan was also done on patient, which revealed Cavitary lesion, right lower lobe. General: weak, alert HEENT: NC/AT, PERRLA Neck: + trach Lungs: wheezing, rales Cardiovascular: RRR, Normal S1 Abdomen: soft, non-tender, non-distended Extremities: excoriation Neurological: alert, muscle weakness Internal Medicine Assmt/Plan - Assessment Assessment: Cavitary lesion, right lower lobe. BPH. Atrial Fibrillation. Stage 4 bladder cancer. - Plan Plan: Continuation of care. Continue present antibiotic and meds as directed. Monitor Labs, Diet. Trach care. Fall precaution. Pain management. TB workup. Followup with Dr. Abbi Leyva. Continue current treatment plan as ordered. Nutritional Asmnt/Malnutr-PDOC - Dietary Evaluation Malnutrition Findings (Please click <Entered> for more info): Nutritional Asmnt/Malnutrition Start: 05/06/18 15: 50 Text: Status: Complete Freq: Protocol: Document 05/06/18 15:50 LCHENG (Rec: 05/06/18 16:06 LCHENG [email or web address]) Nutritional Asmnt/Malnutrition Patient General Information Nutritional Screening High Risk Diagnosis possible DC Pertinent Medical Hx/Surgical Hx afib, BOPH, stage4 blader CA, PEG/Gtube, trach Subjective Information Pt seen in airebone isolation room. Per RN, pt is geting bolus feeding 5 times daily. Current Diet Order/ Nutrition Support Jevity 1.2 250ml x 5 daily Pertinent Medications seroquel Pertinent Labs 05/06 BUN 45 Nutritional Hx/Data Height 1.68 m Height (Calculated Centimeters) 167.6 Current Weight (lbs) 73.936 kg Weight (Calculated Kilograms) 73.9 Weight (Calculated Grams) 57085.6 [place] Body Weight 142 Body Mass Index (BMI) 26.3 Weight Status Overweight GI Symptoms GI Symptoms None Last BM 05/05 Difficult in: None Skin Integrity/Comment: skin tear reddended to lwoer buttocks Estimated Nutritional Goals BEE in Kcals: Using Current wt Calories/Kcals/Kg 20-25 Kcals Calculated 5592-0941 Protein: Using Current wt Protein g/k.8-1 Protein Calculated 59-74 Fluid: ml 1480-1850ml (1ml/kcal) Nutritional Problem No current Nutrition Prob Problem N/A Malnutrition Alert Is there a minimum of two criteria No selected? Query Text:Check all the applicable criteria. A minimum of two criteria are recommended for diagnosis of either severe or non-severe malnutrition. Malnutrition Related to Morbid Obesity Malnutrition related to morbid obesity No Intervention/Recommendation Comments 1. Continue with current TF regimen. It provides 1500kcal, 69g protein, 1008ml free water, meeting 100% of nutritional needs 2. Monitor tolerance, wt, skin integrity and labs 3. F/U as moderate risk in 3-5 days Expected Outcomes/Goals Expected Outcomes/Goals 1. Pt to meet at least 90% of nutritional needs via nutrition support with tolerance 2. Wt stability, skin to remain intact, labs to approach WNL.
[2018-05-12] MEDS: cefTRIAXone 1 GM in Sodium Chloride 0.9% 50 ML IV SCH (09:19)
--- NOTE | 2018-05-12 23:23 | Infectious Disease Prog Note ---
Infectious Disease Subjective - Review of Systems Service Date: 05/12/18 Subjective: There is no new change, no fever. Infectious Disease Objective - Results Result Diagrams: 05/07/18 10:45 05/07/18 10:45 Recent Labs: Laboratory Last Values WBC 5.3 Th/cmm (4.8-10.8) 05/07/18 10:45 RBC 3.96 Mil/cmm (3.80-5.80) 05/07/18 10:45 Hgb 11.4 gm/dL (12-16) L 05/07/18 10:45 Hct 34.8 % (41.0-60) L 05/07/18 10:45 MCV 87.8 fl (80-99) 05/07/18 10:45 MCH 28.8 pg (27.0-31.0) 05/07/18 10:45 MCHC Differential 32.8 pg (28.0-36.0) 05/07/18 10:45 RDW 14.5 % (11.5-20.0) 05/07/18 10:45 Plt Count 108 Th/cmm (150-400) L 05/07/18 10:45 MPV 11.4 fl 05/07/18 10:45 Neutrophils % 55.5 % (40.0-80.0) 05/07/18 10:45 Lymphocytes % 26.6 % (20.0-50.0) 05/07/18 10:45 Monocytes % 12.5 % (2.0-10.0) H 05/07/18 10:45 Eosinophils % 4.9 % (0.0-5.0) 05/07/18 10:45 Basophils % 0.5 % (0.0-2.0) 05/07/18 10:45 Sodium 142 mEq/L (136-145) 05/07/18 10:45 Potassium 4.3 mEq/L (3.5-5.1) 05/07/18 10:45 Chloride 109 mEq/L (98-107) H 05/07/18 10:45 Carbon Dioxide 25.7 mEq/L (21.0-31.0) 05/07/18 10:45 Anion Gap 11.6 (7.0-16.0) 05/07/18 10:45 BUN 48 mg/dL (7-25) H 05/07/18 10:45 Creatinine 1.0 mg/dL (0.7-1.3) 05/07/18 10:45 Est GFR ( Amer) TNP 05/07/18 10:45 Est GFR (Non-Af Amer) TNP 05/07/18 10:45 BUN/Creatinine Ratio 48.0 05/07/18 10:45 Glucose 100 mg/dL (70-105) 05/07/18 10:45 POC Glucose 88 MG/DL (70 - 105) 05/05/18 10:00 Calcium 9.1 mg/dL (8.6-10.3) 05/07/18 10:45 Total Bilirubin 0.4 mg/dL (0.3-1.0) 05/05/18 02:15 AST 21 U/L (13-39) 05/05/18 02:15 ALT 12 U/L (7-52) 05/05/18 02:15 Alkaline Phosphatase 90 U/L (34-104) 05/05/18 02:15 Troponin I 0.01 ng/mL (0.01-0.05) 05/05/18 02:15 Total Protein 8.0 gm/dL (6.0-8.3) 05/05/18 02:15 Albumin 3.5 gm/dL (4.2-5.5) L 05/05/18 02:15 Globulin 4.5 gm/dL 05/05/18 02:15 Albumin/Globulin Ratio 0.8 (1.0-1.8) L 05/05/18 02:15 - Physical Exam Vitals and I&O: Vital Signs Temp 98.6 F 05/12/18 20:00 Pulse 68 05/12/18 20:00 Resp 18 05/12/18 20:00 BP 102/64 05/12/18 20:00 Pulse Ox 93 05/12/18 20:00 Intake & Output 05/12/18 05/12/18 05/13/18 06:59 18:59 06:59 Intake Total 50 1468 Output Total 350 Balance 50 1118 Weight (lbs) 74.389 kg 74.389 kg Intake: Oral 0 0 Tube Feeding 948 Other 50 520 Output: Urine 350 Other: # Voids 3 # Bowel Movements 0 Weight Source Bedscale Bedscale Active Medications: Current Medications Lipase/Protease/Amylase (Zenpep 5,000 U) 1 cap PO BID [facility] Stop: 07/04/18 16:59 Last Admin: 05/12/18 18:03 Dose: 1 cap Artificial Tears (Artificial Tears Ophth Soln) 2 drop EACH EYE DAILY [facility] Stop: 07/05/18 08:59 Last Admin: 05/12/18 09:02 Dose: Not Given Benazepril HCl (Lotensin) 10 mg GT DAILY [facility] Stop: 07/05/18 08:59 Last Admin: 05/12/18 08:53 Dose: Not Given Donepezil HCl (Aricept) 15 mg GT DAILY [facility] Stop: 07/05/18 08:59 Last Admin: 05/12/18 08:51 Dose: 15 mg Duloxetine HCl (Cymbalta) 60 mg PO DAILY [facility] Stop: 07/05/18 08:59 Last Admin: 05/12/18 08:51 Dose: 60 mg Glycopyrrolate (Robinul) 1 mg PO BID [facility] Stop: 07/04/18 16:59 Last Admin: 05/12/18 18:04 Dose: 1 mg Guaifenesin (Robitussin) 200 mg GT Q6HR PRN PRN Reason: Cough Stop: 07/04/18 13:25 Ceftriaxone Sodium 1 gm/ (Sodium Chloride) 50 mls @ 100 mls/hr IV Q24HR [facility] Stop: 07/04/18 10:06 Last Admin: 05/12/18 09:19 Dose: 100 mls/hr Quetiapine Fumarate (Seroquel) 100 mg GT BID [facility]; Protocol Stop: 07/04/18 16:59 Last Admin: 05/12/18 18:04 Dose: 100 mg Sodium Bicarbonate (Sodium Bicarbonate) 650 mg GT BID [facility]; Protocol Stop: 07/04/18 16:59 Last Admin: 05/12/18 18:04 Dose: 650 mg Tamsulosin HCl (Flomax) 0.4 mg GT DAILY [facility] Stop: 07/05/18 08:59 Last Admin: 05/12/18 08:52 Dose: 0.4 mg Valproate Sodium (Depakene) 500 mg GT HS [facility]; Protocol Stop: 07/04/18 20:59 Last Admin: 05/12/18 21:01 Dose: 500 mg General: no acute distress, cachectic HEENT: atraumatic, normocephalic, PERRLA, EOMI Neck: supple, no thyromegaly Cardiovascular: S1S2, regular Lungs: clear to auscultation bilaterally, clear to percussion Abdomen: soft, no tender, no distended Extremities: no cyanosis, no clubbing, no edema Neurological: awake, alert, oriented Skin: intact Infectious Disease Assmt/Plan - Assessment Assessment: 1. Cavitary lesion in the lung. seems less likely Pulmonary TB. Sputum for AFB smear is negative x3, MTB PCR x 2 negative; TB gold quantiferon is negative. 2, BPH. 3. Afig. 4. Prostate CA. - Plan Plan: When cleared by the public [place] [facility]/Infection Control DEPT patient can be reomoved from isolation and dc patient. I will wait for call from MD from [facility] tomorrow and will decide accordingly. Nutritional Asmnt/Malnutr-PDOC - Dietary Evaluation Malnutrition Findings (Please click <Entered> for more info): Nutritional Asmnt/Malnutrition Start: 05/06/18 15: 50 Text: Status: Complete Freq: Protocol: Document 05/06/18 15:50 LCHENG (Rec: 05/06/18 16:06 LCHENG [email or web address]) Nutritional Asmnt/Malnutrition Patient General Information Nutritional Screening High Risk Diagnosis possible DC Pertinent Medical Hx/Surgical Hx afib, BOPH, stage4 blader CA, PEG/Gtube, trach Subjective Information Pt seen in [facility] isolation room. Per RN, pt is geting bolus feeding 5 times daily. Current Diet Order/ Nutrition Support Jevity 1.2 250ml x 5 daily Pertinent Medications seroquel Pertinent Labs 05/06 BUN 45 Nutritional Hx/Data Height 1.68 m Height (Calculated Centimeters) 167.6 Current Weight (lbs) 73.936 kg Weight (Calculated Kilograms) 73.9 Weight (Calculated Grams) 20322.6 [place] Body Weight 142 Body Mass Index (BMI) 26.3 Weight Status Overweight GI Symptoms GI Symptoms None Last BM 05/05 Difficult in: None Skin Integrity/Comment: skin tear reddended to lwoer buttocks Estimated Nutritional Goals BEE in Kcals: Using Current wt Calories/Kcals/Kg 20-25 Kcals Calculated 4306-6908 Protein: Using Current wt Protein g/k.8-1 Protein Calculated 59-74 Fluid: ml 1480-1850ml (1ml/kcal) Nutritional Problem No current Nutrition Prob Problem N/A Malnutrition Alert Is there a minimum of two criteria No selected? Query Text:Check all the applicable criteria. A minimum of two criteria are recommended for diagnosis of either severe or non-severe malnutrition. Malnutrition Related to Morbid Obesity Malnutrition related to morbid obesity No Intervention/Recommendation Comments 1. Continue with current TF regimen. It provides 1500kcal, 69g protein, 1008ml free water, meeting 100% of nutritional needs 2. Monitor tolerance, wt, skin integrity and labs 3. F/U as moderate risk in 3-5 days Expected Outcomes/Goals Expected Outcomes/Goals 1. Pt to meet at least 90% of nutritional needs via nutrition support with tolerance 2. Wt stability, skin to remain intact, labs to approach WNL.
--- NOTE | 2018-05-13 03:31 | Progress Notes ---
DATE: 05/12/2018 PULMONARY PROGRESS NOTE SUBJECTIVE: The patient appears to be okay, comfortable. No secretions. OBJECTIVE: VITAL SIGNS: Temperature 97.7, pulse 67, respiration 18, blood pressure 112/77, saturation 96%. HEENT: Atraumatic, normocephalic. Pupils equal and reactive to light and accommodation. CHEST: Good breath sounds. No wheezing or crackles. HEART: Regular rate and rhythm. ABDOMEN: Soft. EXTREMITIES: No edema. Three AFBs are negative. TB Gold still pending. IMPRESSION: Pneumonia, pseudomonas infection, better; cavitary lesions; old bladder carcinoma. AFBs are negative x 3. Awaiting for Health Department to clear the patient to be discharged. There is no reason to continue isolating the patient at this point, especially of his TB Gold comes back negative. JOB# [id number]
[2018-05-13] MEDS: cefTRIAXone 1 GM in Sodium Chloride 0.9% 50 ML IV SCH (09:06)
[2018-05-13] MEDS: Polyvinyl Alcohol Ophth Soln 15 mL Bottle EACH EYE SCH (09:08)
--- NOTE | 2018-05-13 13:23 | Infectious Disease Prog Note ---
Infectious Disease Subjective - Review of Systems Service Date: 05/13/18 Subjective: There is no new change, no fever. Infectious Disease Objective - Results Result Diagrams: 05/07/18 10:45 05/07/18 10:45 Recent Labs: Laboratory Last Values WBC 5.3 Th/cmm (4.8-10.8) 05/07/18 10:45 RBC 3.96 Mil/cmm (3.80-5.80) 05/07/18 10:45 Hgb 11.4 gm/dL (12-16) L 05/07/18 10:45 Hct 34.8 % (41.0-60) L 05/07/18 10:45 MCV 87.8 fl (80-99) 05/07/18 10:45 MCH 28.8 pg (27.0-31.0) 05/07/18 10:45 MCHC Differential 32.8 pg (28.0-36.0) 05/07/18 10:45 RDW 14.5 % (11.5-20.0) 05/07/18 10:45 Plt Count 108 Th/cmm (150-400) L 05/07/18 10:45 MPV 11.4 fl 05/07/18 10:45 Neutrophils % 55.5 % (40.0-80.0) 05/07/18 10:45 Lymphocytes % 26.6 % (20.0-50.0) 05/07/18 10:45 Monocytes % 12.5 % (2.0-10.0) H 05/07/18 10:45 Eosinophils % 4.9 % (0.0-5.0) 05/07/18 10:45 Basophils % 0.5 % (0.0-2.0) 05/07/18 10:45 Sodium 142 mEq/L (136-145) 05/07/18 10:45 Potassium 4.3 mEq/L (3.5-5.1) 05/07/18 10:45 Chloride 109 mEq/L (98-107) H 05/07/18 10:45 Carbon Dioxide 25.7 mEq/L (21.0-31.0) 05/07/18 10:45 Anion Gap 11.6 (7.0-16.0) 05/07/18 10:45 BUN 48 mg/dL (7-25) H 05/07/18 10:45 Creatinine 1.0 mg/dL (0.7-1.3) 05/07/18 10:45 Est GFR ( Amer) TNP 05/07/18 10:45 Est GFR (Non-Af Amer) TNP 05/07/18 10:45 BUN/Creatinine Ratio 48.0 05/07/18 10:45 Glucose 100 mg/dL (70-105) 05/07/18 10:45 POC Glucose 88 MG/DL (70 - 105) 05/05/18 10:00 Calcium 9.1 mg/dL (8.6-10.3) 05/07/18 10:45 Total Bilirubin 0.4 mg/dL (0.3-1.0) 05/05/18 02:15 AST 21 U/L (13-39) 05/05/18 02:15 ALT 12 U/L (7-52) 05/05/18 02:15 Alkaline Phosphatase 90 U/L (34-104) 05/05/18 02:15 Troponin I 0.01 ng/mL (0.01-0.05) 05/05/18 02:15 Total Protein 8.0 gm/dL (6.0-8.3) 05/05/18 02:15 Albumin 3.5 gm/dL (4.2-5.5) L 05/05/18 02:15 Globulin 4.5 gm/dL 05/05/18 02:15 Albumin/Globulin Ratio 0.8 (1.0-1.8) L 05/05/18 02:15 - Physical Exam Vitals and I&O: Vital Signs Temp 98.2 F 05/13/18 11:29 Pulse 78 05/13/18 11:29 Resp 18 05/13/18 12:00 BP 108/68 05/13/18 11:29 Pulse Ox 96 05/13/18 11:29 Intake & Output 05/12/18 05/13/18 05/13/18 18:59 06:59 18:59 Intake Total 1518 Output Total 350 Balance 1168 Weight (lbs) 74.389 kg Intake: Intake, IV Amount 50 cefTRIAXone 1 gm In 50 Sodium Chloride 0.9% 50 ml @ 100 mls/hr IV Q24HR [facility] Rx#:[id number] Oral 0 Tube Feeding 948 Other 520 Output: Urine 350 Other: # Voids 3 # Bowel Movements 0 Weight Source Bedscale Active Medications: Current Medications Lipase/Protease/Amylase (Zenpep 5,000 U) 1 cap PO BID [facility] Stop: 07/04/18 16:59 Last Admin: 05/13/18 09:08 Dose: 1 cap Artificial Tears (Artificial Tears Ophth Soln) 2 drop EACH EYE DAILY [facility] Stop: 07/05/18 08:59 Last Admin: 05/13/18 09:08 Dose: 2 drop Benazepril HCl (Lotensin) 10 mg GT DAILY [facility] Stop: 07/05/18 08:59 Last Admin: 05/13/18 09:08 Dose: 10 mg Donepezil HCl (Aricept) 15 mg GT DAILY [facility] Stop: 07/05/18 08:59 Last Admin: 05/13/18 09:08 Dose: 15 mg Duloxetine HCl (Cymbalta) 60 mg PO DAILY [facility] Stop: 07/05/18 08:59 Last Admin: 05/13/18 09:08 Dose: 60 mg Glycopyrrolate (Robinul) 1 mg PO BID [facility] Stop: 07/04/18 16:59 Last Admin: 05/13/18 09:07 Dose: 1 mg Guaifenesin (Robitussin) 200 mg GT Q6HR PRN PRN Reason: Cough Stop: 07/04/18 13:25 Ceftriaxone Sodium 1 gm/ (Sodium Chloride) 50 mls @ 100 mls/hr IV Q24HR [facility] Stop: 07/04/18 10:06 Last Admin: 05/13/18 09:06 Dose: 100 mls/hr Quetiapine Fumarate (Seroquel) 100 mg GT BID [facility]; Protocol Stop: 07/04/18 16:59 Last Admin: 05/13/18 09:08 Dose: 100 mg Sodium Bicarbonate (Sodium Bicarbonate) 650 mg GT BID [facility]; Protocol Stop: 07/04/18 16:59 Last Admin: 05/13/18 09:09 Dose: 650 mg Tamsulosin HCl (Flomax) 0.4 mg GT DAILY [facility] Stop: 07/05/18 08:59 Last Admin: 05/13/18 09:08 Dose: 0.4 mg Valproate Sodium (Depakene) 500 mg GT HS [facility]; Protocol Stop: 07/04/18 20:59 Last Admin: 05/12/18 21:01 Dose: 500 mg General: no acute distress, cachectic HEENT: atraumatic, normocephalic, PERRLA, EOMI Neck: supple, no thyromegaly Cardiovascular: S1S2, regular Lungs: clear to auscultation bilaterally, clear to percussion Abdomen: soft, no tender, no distended, no mass Extremities: no cyanosis, no clubbing, no edema Neurological: awake, alert, oriented Skin: intact Infectious Disease Assmt/Plan - Assessment Assessment: 1. Cavitary lesion in the lung. seems less likely Pulmonary TB. Sputum for AFB smear is negative x3, MTB PCR x 2 negative; TB gold quantiferon is pending. 2, BPH. 3. Afib. 4. Prostate CA. - Plan Plan: When cleared by the public health/Infection Control DEPT patient can be removed from isolation and dc patient. I missed the call by Public health MD, this am I have returned back call to his cell phone and left message. As per Patient's son, Dr Haider Chavez, patient has this cavitary lesion for long time and worked up [facility] the [facility]. Nutritional Asmnt/Malnutr-PDOC - Dietary Evaluation Malnutrition Findings (Please click <Entered> for more info): Nutritional Asmnt/Malnutrition Start: 05/06/18 15: 50 Text: Status: Complete Freq: Protocol: Document 05/06/18 15:50 LCHENG (Rec: 05/06/18 16:06 LCHENG [email or web address]) Nutritional Asmnt/Malnutrition Patient General Information Nutritional Screening High Risk Diagnosis possible DC Pertinent Medical Hx/Surgical Hx afib, BOPH, stage4 blader CA, PEG/Gtube, trach Subjective Information Pt seen in [facility] isolation room. Per RN, pt is geting bolus feeding 5 times daily. Current Diet Order/ Nutrition Support Jevity 1.2 250ml x 5 daily Pertinent Medications seroquel Pertinent Labs 05/06 BUN 45 Nutritional Hx/Data Height 1.68 m Height (Calculated Centimeters) 167.6 Current Weight (lbs) 73.936 kg Weight (Calculated Kilograms) 73.9 Weight (Calculated Grams) 22175.6 [place] Body Weight 142 Body Mass Index (BMI) 26.3 Weight Status Overweight GI Symptoms GI Symptoms None Last BM 05/05 Difficult in: None Skin Integrity/Comment: skin tear reddended to lwoer buttocks Estimated Nutritional Goals BEE in Kcals: Using Current wt Calories/Kcals/Kg 20-25 Kcals Calculated 3214-7915 Protein: Using Current wt Protein g/k.8-1 Protein Calculated 59-74 Fluid: ml 1480-1850ml (1ml/kcal) Nutritional Problem No current Nutrition Prob Problem N/A Malnutrition Alert Is there a minimum of two criteria No selected? Query Text:Check all the applicable criteria. A minimum of two criteria are recommended for diagnosis of either severe or non-severe malnutrition. Malnutrition Related to Morbid Obesity Malnutrition related to morbid obesity No Intervention/Recommendation Comments 1. Continue with current TF regimen. It provides 1500kcal, 69g protein, 1008ml free water, meeting 100% of nutritional needs 2. Monitor tolerance, wt, skin integrity and labs 3. F/U as moderate risk in 3-5 days Expected Outcomes/Goals Expected Outcomes/Goals 1. Pt to meet at least 90% of nutritional needs via nutrition support with tolerance 2. Wt stability, skin to remain intact, labs to approach WNL.
--- NOTE | 2018-05-13 18:34 | Internal Medicine Prog Note ---
Internal Medicine Subjective - Subjective Service Date: 05/13/18 Patient is:: awake, verbal, interactive, in bed, denies any new complaints Patient Complaints of:: other Per staff patient has:: no adverse event, no episodes of fall, tolerating meds Internal Medicine Objective - Results Result Diagrams: 05/07/18 10:45 05/07/18 10:45 Recent Labs: Laboratory Last Values WBC 5.3 Th/cmm (4.8-10.8) 05/07/18 10:45 RBC 3.96 Mil/cmm (3.80-5.80) 05/07/18 10:45 Hgb 11.4 gm/dL (12-16) L 05/07/18 10:45 Hct 34.8 % (41.0-60) L 05/07/18 10:45 MCV 87.8 fl (80-99) 05/07/18 10:45 MCH 28.8 pg (27.0-31.0) 05/07/18 10:45 MCHC Differential 32.8 pg (28.0-36.0) 05/07/18 10:45 RDW 14.5 % (11.5-20.0) 05/07/18 10:45 Plt Count 108 Th/cmm (150-400) L 05/07/18 10:45 MPV 11.4 fl 05/07/18 10:45 Neutrophils % 55.5 % (40.0-80.0) 05/07/18 10:45 Lymphocytes % 26.6 % (20.0-50.0) 05/07/18 10:45 Monocytes % 12.5 % (2.0-10.0) H 05/07/18 10:45 Eosinophils % 4.9 % (0.0-5.0) 05/07/18 10:45 Basophils % 0.5 % (0.0-2.0) 05/07/18 10:45 Sodium 142 mEq/L (136-145) 05/07/18 10:45 Potassium 4.3 mEq/L (3.5-5.1) 05/07/18 10:45 Chloride 109 mEq/L (98-107) H 05/07/18 10:45 Carbon Dioxide 25.7 mEq/L (21.0-31.0) 05/07/18 10:45 Anion Gap 11.6 (7.0-16.0) 05/07/18 10:45 BUN 48 mg/dL (7-25) H 05/07/18 10:45 Creatinine 1.0 mg/dL (0.7-1.3) 05/07/18 10:45 Est GFR ( Amer) TNP 05/07/18 10:45 Est GFR (Non-Af Amer) TNP 05/07/18 10:45 BUN/Creatinine Ratio 48.0 05/07/18 10:45 Glucose 100 mg/dL (70-105) 05/07/18 10:45 POC Glucose 88 MG/DL (70 - 105) 05/05/18 10:00 Calcium 9.1 mg/dL (8.6-10.3) 05/07/18 10:45 Total Bilirubin 0.4 mg/dL (0.3-1.0) 05/05/18 02:15 AST 21 U/L (13-39) 05/05/18 02:15 ALT 12 U/L (7-52) 05/05/18 02:15 Alkaline Phosphatase 90 U/L (34-104) 05/05/18 02:15 Troponin I 0.01 ng/mL (0.01-0.05) 05/05/18 02:15 Total Protein 8.0 gm/dL (6.0-8.3) 05/05/18 02:15 Albumin 3.5 gm/dL (4.2-5.5) L 05/05/18 02:15 Globulin 4.5 gm/dL 05/05/18 02:15 Albumin/Globulin Ratio 0.8 (1.0-1.8) L 05/05/18 02:15 Coccidioides Ab 1:2 (Neg:<1:2) 05/07/18 10:45 - Physical Exam Vitals and I&O: Vital Signs Temp 97.8 F 05/13/18 16:00 Pulse 60 05/13/18 16:00 Resp 18 05/13/18 17:00 BP 98/60 05/13/18 16:00 Pulse Ox 95 05/13/18 16:00 Intake & Output 05/12/18 05/13/18 05/13/18 18:59 06:59 18:59 Intake Total 1518 500 Output Total 350 60 Balance 1168 440 Weight (lbs) 164 lb 164 lb Intake: Intake, IV Amount 50 cefTRIAXone 1 gm In 50 Sodium Chloride 0.9% 50 ml @ 100 mls/hr IV Q24HR ON LICENSE OF [facility] Rx#:[id number] Oral 0 Tube Feeding 948 500 Other 520 Output: Urine 350 60 Other: # Voids 3 # Bowel Movements 0 Weight Source Bedscale Bedscale Active Medications: Current Medications Lipase/Protease/Amylase (Zenpep 5,000 U) 1 cap PO BID [facility] Stop: 07/04/18 16:59 Last Admin: 05/13/18 17:21 Dose: 1 cap Artificial Tears (Artificial Tears Ophth Soln) 2 drop EACH EYE DAILY [facility] Stop: 07/05/18 08:59 Last Admin: 05/13/18 09:08 Dose: 2 drop Benazepril HCl (Lotensin) 10 mg GT DAILY [facility] Stop: 07/05/18 08:59 Last Admin: 05/13/18 09:08 Dose: 10 mg Donepezil HCl (Aricept) 15 mg GT DAILY [facility] Stop: 07/05/18 08:59 Last Admin: 05/13/18 09:08 Dose: 15 mg Duloxetine HCl (Cymbalta) 60 mg PO DAILY [facility] Stop: 07/05/18 08:59 Last Admin: 05/13/18 09:08 Dose: 60 mg Glycopyrrolate (Robinul) 1 mg PO BID [facility] Stop: 07/04/18 16:59 Last Admin: 05/13/18 17:21 Dose: 1 mg Guaifenesin (Robitussin) 200 mg GT Q6HR PRN PRN Reason: Cough Stop: 07/04/18 13:25 Ceftriaxone Sodium 1 gm/ (Sodium Chloride) 50 mls @ 100 mls/hr IV Q24HR [facility] Stop: 07/04/18 10:06 Last Admin: 05/13/18 09:06 Dose: 100 mls/hr Quetiapine Fumarate (Seroquel) 100 mg GT BID [facility]; Protocol Stop: 07/04/18 16:59 Last Admin: 05/13/18 17:21 Dose: 100 mg Sodium Bicarbonate (Sodium Bicarbonate) 650 mg GT BID [facility]; Protocol Stop: 07/04/18 16:59 Last Admin: 05/13/18 17:22 Dose: 650 mg Tamsulosin HCl (Flomax) 0.4 mg GT DAILY [facility] Stop: 07/05/18 08:59 Last Admin: 05/13/18 09:08 Dose: 0.4 mg Valproate Sodium (Depakene) 500 mg GT HS [facility]; Protocol Stop: 07/04/18 20:59 Last Admin: 05/12/18 21:01 Dose: 500 mg General: weak, alert HEENT: NC/AT, PERRLA Neck: + trach Lungs: wheezing, rales Cardiovascular: RRR, Normal S1 Abdomen: soft, non-tender, non-distended Extremities: excoriation Neurological: alert, muscle weakness Internal Medicine Assmt/Plan - Assessment Assessment: r/o tb aspiration pneumonia respiratory failure BPh stage 4 bladder ca tracheostomy status - Plan Plan: awaiting for [facility] for clearance continue current plan of care Nutritional Asmnt/Malnutr-PDOC - Dietary Evaluation Malnutrition Findings (Please click <Entered> for more info): Nutritional Asmnt/Malnutrition Start: 05/06/18 15: 50 Text: Status: Complete Freq: Protocol: Document 05/06/18 15:50 LCHENG (Rec: 05/06/18 16:06 LCHENG [email or web address]) Nutritional Asmnt/Malnutrition Patient General Information Nutritional Screening High Risk Diagnosis possible DC Pertinent Medical Hx/Surgical Hx afib, BOPH, stage4 blader CA, PEG/Gtube, trach Subjective Information Pt seen in [facility] isolation room. Per RN, pt is geting bolus feeding 5 times daily. Current Diet Order/ Nutrition Support Jevity 1.2 250ml x 5 daily Pertinent Medications seroquel Pertinent Labs 05/06 BUN 45 Nutritional Hx/Data Height 5 ft 6 in Height (Calculated Centimeters) 167.6 Current Weight (lbs) 163 lb Weight (Calculated Kilograms) 73.9 Weight (Calculated Grams) 12243.6 [place] Body Weight 142 Body Mass Index (BMI) 26.3 Weight Status Overweight GI Symptoms GI Symptoms None Last BM 05/05 Difficult in: None Skin Integrity/Comment: skin tear reddended to lwoer buttocks Estimated Nutritional Goals BEE in Kcals: Using Current wt Calories/Kcals/Kg 20-25 Kcals Calculated 9289-8352 Protein: Using Current wt Protein g/k.8-1 Protein Calculated 59-74 Fluid: ml 1480-1850ml (1ml/kcal) Nutritional Problem No current Nutrition Prob Problem N/A Malnutrition Alert Is there a minimum of two criteria No selected? Query Text:Check all the applicable criteria. A minimum of two criteria are recommended for diagnosis of either severe or non-severe malnutrition. Malnutrition Related to Morbid Obesity Malnutrition related to morbid obesity No Intervention/Recommendation Comments 1. Continue with current TF regimen. It provides 1500kcal, 69g protein, 1008ml free water, meeting 100% of nutritional needs 2. Monitor tolerance, wt, skin integrity and labs 3. F/U as moderate risk in 3-5 days Expected Outcomes/Goals Expected Outcomes/Goals 1. Pt to meet at least 90% of nutritional needs via nutrition support with tolerance 2. Wt stability, skin to remain intact, labs to approach WNL.
--- NOTE | 2018-05-14 04:24 | Progress Notes ---
DATE: 05/13/2018 PULMONARY PROGRESS NOTE SUBJECTIVE: The patient appears to be doing okay, comfortable asking when he can be discharged again. OBJECTIVE: VITAL SIGNS: Temperature is 98.2, pulse 78, respirations 18, blood pressure is 108/68, and saturation 96% on room air. CHEST: Good breath sounds. No wheezing or crackles. HEART: Regular rate and rhythm. ABDOMEN: Soft. EXTREMITIES: No edema. LABORATORY DATA: TB Gold still pending. ASSESSMENT: 1. This is an 82-year-old male with acute bronchitis. 2. Metastatic bladder cancer. 3. Dysphagia. 4. Respiratory failure, status post trach. PLAN: AFB is negative. We are awaiting for [facility] to clear the patient from isolation to be discharged. Continue supportive care and pulmonary toilet, tracheostomy care. Discussed with Dr. Alcon Leyva. JOB# [id number]
[2018-05-14] MEDS: cefTRIAXone 1 GM in Sodium Chloride 0.9% 50 ML IV SCH (09:44)
[2018-05-14] MEDS: Polyvinyl Alcohol Ophth Soln 15 mL Bottle EACH EYE SCH ×2 (09:45→09:49)
--- NOTE | 2018-05-14 14:03 | Internal Medicine Prog Note ---
Internal Medicine Subjective - Subjective Service Date: 05/14/18 Patient seen and examined:: chart reviewed Patient is:: awake, verbal, interactive, in bed, talking, denies any new complaints Patient Complaints of:: other Per staff patient has:: no adverse event, no episodes of fall, tolerating meds Internal Medicine Objective - Results Result Diagrams: 05/07/18 10:45 05/07/18 10:45 Recent Labs: Laboratory Last Values WBC 5.3 Th/cmm (4.8-10.8) 05/07/18 10:45 RBC 3.96 Mil/cmm (3.80-5.80) 05/07/18 10:45 Hgb 11.4 gm/dL (12-16) L 05/07/18 10:45 Hct 34.8 % (41.0-60) L 05/07/18 10:45 MCV 87.8 fl (80-99) 05/07/18 10:45 MCH 28.8 pg (27.0-31.0) 05/07/18 10:45 MCHC Differential 32.8 pg (28.0-36.0) 05/07/18 10:45 RDW 14.5 % (11.5-20.0) 05/07/18 10:45 Plt Count 108 Th/cmm (150-400) L 05/07/18 10:45 MPV 11.4 fl 05/07/18 10:45 Neutrophils % 55.5 % (40.0-80.0) 05/07/18 10:45 Lymphocytes % 26.6 % (20.0-50.0) 05/07/18 10:45 Monocytes % 12.5 % (2.0-10.0) H 05/07/18 10:45 Eosinophils % 4.9 % (0.0-5.0) 05/07/18 10:45 Basophils % 0.5 % (0.0-2.0) 05/07/18 10:45 Sodium 142 mEq/L (136-145) 05/07/18 10:45 Potassium 4.3 mEq/L (3.5-5.1) 05/07/18 10:45 Chloride 109 mEq/L (98-107) H 05/07/18 10:45 Carbon Dioxide 25.7 mEq/L (21.0-31.0) 05/07/18 10:45 Anion Gap 11.6 (7.0-16.0) 05/07/18 10:45 BUN 48 mg/dL (7-25) H 05/07/18 10:45 Creatinine 1.0 mg/dL (0.7-1.3) 05/07/18 10:45 Est GFR ( Amer) TNP 05/07/18 10:45 Est GFR (Non-Af Amer) TNP 05/07/18 10:45 BUN/Creatinine Ratio 48.0 05/07/18 10:45 Glucose 100 mg/dL (70-105) 05/07/18 10:45 POC Glucose 88 MG/DL (70 - 105) 05/05/18 10:00 Calcium 9.1 mg/dL (8.6-10.3) 05/07/18 10:45 Total Bilirubin 0.4 mg/dL (0.3-1.0) 05/05/18 02:15 AST 21 U/L (13-39) 05/05/18 02:15 ALT 12 U/L (7-52) 05/05/18 02:15 Alkaline Phosphatase 90 U/L (34-104) 05/05/18 02:15 Troponin I 0.01 ng/mL (0.01-0.05) 05/05/18 02:15 Total Protein 8.0 gm/dL (6.0-8.3) 05/05/18 02:15 Albumin 3.5 gm/dL (4.2-5.5) L 05/05/18 02:15 Globulin 4.5 gm/dL 05/05/18 02:15 Albumin/Globulin Ratio 0.8 (1.0-1.8) L 05/05/18 02:15 Coccidioides Ab 1:2 (Neg:<1:2) 05/07/18 10:45 - Physical Exam Vitals and I&O: Vital Signs Temp 98.0 F 05/14/18 11:40 Pulse 69 05/14/18 11:40 Resp 19 05/14/18 11:40 BP 120/61 05/14/18 11:40 Pulse Ox 96 05/14/18 11:40 Intake & Output 05/13/18 05/14/18 05/14/18 18:59 06:59 18:59 Intake Total 550 Output Total 60 375 Balance 490 -375 Weight (lbs) 74.389 kg 74.389 kg Intake: Intake, IV Amount 50 cefTRIAXone 1 gm In 50 Sodium Chloride 0.9% 50 ml @ 100 mls/hr IV Q24HR [facility] Rx#:[id number] Tube Feeding 500 Output: Urine 60 375 Other: Weight Source Bedscale Bedscale Active Medications: Current Medications Lipase/Protease/Amylase (Zenpep 5,000 U) 1 cap PO BID [facility] Stop: 07/04/18 16:59 Last Admin: 05/14/18 09:47 Dose: 1 cap Artificial Tears (Artificial Tears Ophth Soln) 2 drop EACH EYE DAILY [facility] Stop: 07/05/18 08:59 Last Admin: 05/14/18 09:49 Dose: Not Given Benazepril HCl (Lotensin) 10 mg GT DAILY [facility] Stop: 07/05/18 08:59 Last Admin: 05/14/18 09:45 Dose: 10 mg Donepezil HCl (Aricept) 15 mg GT DAILY [facility] Stop: 07/05/18 08:59 Last Admin: 05/14/18 09:46 Dose: 15 mg Duloxetine HCl (Cymbalta) 60 mg PO DAILY [facility] Stop: 07/05/18 08:59 Last Admin: 05/14/18 09:46 Dose: 60 mg Glycopyrrolate (Robinul) 1 mg PO BID [facility] Stop: 07/04/18 16:59 Last Admin: 05/14/18 09:48 Dose: 1 mg Guaifenesin (Robitussin) 200 mg GT Q6HR PRN PRN Reason: Cough Stop: 07/04/18 13:25 Ceftriaxone Sodium 1 gm/ (Sodium Chloride) 50 mls @ 100 mls/hr IV Q24HR [facility] Stop: 07/04/18 10:06 Last Admin: 05/14/18 09:44 Dose: 100 mls/hr Quetiapine Fumarate (Seroquel) 100 mg GT BID [facility]; Protocol Stop: 07/04/18 16:59 Last Admin: 05/14/18 09:47 Dose: 100 mg Sodium Bicarbonate (Sodium Bicarbonate) 650 mg GT BID [facility]; Protocol Stop: 07/04/18 16:59 Last Admin: 05/14/18 09:47 Dose: 650 mg Tamsulosin HCl (Flomax) 0.4 mg GT DAILY [facility] Stop: 07/05/18 08:59 Last Admin: 05/14/18 09:47 Dose: 0.4 mg Valproate Sodium (Depakene) 500 mg GT HS [facility]; Protocol Stop: 07/04/18 20:59 Last Admin: 05/13/18 21:00 Dose: 500 mg Physical Exam: 82 y/o male patient recently had a Chest x-ray done on 05/04/18 which showed probable right lower lobe pneumonia, suspected Tuberculosis. CT scan was also done on patient, which revealed Cavitary lesion, right lower lobe. General: weak, alert HEENT: NC/AT, PERRLA Neck: + trach Lungs: wheezing, rales Cardiovascular: RRR, Normal S1 Abdomen: soft, non-tender, non-distended Extremities: excoriation Neurological: alert, muscle weakness Internal Medicine Assmt/Plan - Assessment Assessment: Cavitary lesion, right lower lobe. BPH. Atrial Fibrillation. Stage 4 bladder cancer. - Plan Plan: Continuation of care. Continue present antibiotic and meds as directed. Monitor Labs, Diet. Trach care. Fall precaution. Pain management. TB workup. Followup with Dr. Abbi Leyva. Continue current treatment plan as ordered. Nutritional Asmnt/Malnutr-PDOC - Dietary Evaluation Malnutrition Findings (Please click <Entered> for more info): Nutritional Asmnt/Malnutrition Start: 05/06/18 15: 50 Text: Status: Complete Freq: Protocol: Document 05/06/18 15:50 LCHENG (Rec: 05/06/18 16:06 LCHENG [email or web address]) Nutritional Asmnt/Malnutrition Patient General Information Nutritional Screening High Risk Diagnosis possible DC Pertinent Medical Hx/Surgical Hx afib, BOPH, stage4 blader CA, PEG/Gtube, trach Subjective Information Pt seen in [facility] isolation room. Per RN, pt is geting bolus feeding 5 times daily. Current Diet Order/ Nutrition Support Jevity 1.2 250ml x 5 daily Pertinent Medications seroquel Pertinent Labs 05/06 BUN 45 Nutritional Hx/Data Height 1.68 m Height (Calculated Centimeters) 167.6 Current Weight (lbs) 73.936 kg Weight (Calculated Kilograms) 73.9 Weight (Calculated Grams) 02104.6 [place] Body Weight 142 Body Mass Index (BMI) 26.3 Weight Status Overweight GI Symptoms GI Symptoms None Last BM 05/05 Difficult in: None Skin Integrity/Comment: skin tear reddended to lwoer buttocks Estimated Nutritional Goals BEE in Kcals: Using Current wt Calories/Kcals/Kg 20-25 Kcals Calculated 2180-4925 Protein: Using Current wt Protein g/k.8-1 Protein Calculated 59-74 Fluid: ml 1480-1850ml (1ml/kcal) Nutritional Problem No current Nutrition Prob Problem N/A Malnutrition Alert Is there a minimum of two criteria No selected? Query Text:Check all the applicable criteria. A minimum of two criteria are recommended for diagnosis of either severe or non-severe malnutrition. Malnutrition Related to Morbid Obesity Malnutrition related to morbid obesity No Intervention/Recommendation Comments 1. Continue with current TF regimen. It provides 1500kcal, 69g protein, 1008ml free water, meeting 100% of nutritional needs 2. Monitor tolerance, wt, skin integrity and labs 3. F/U as moderate risk in 3-5 days Expected Outcomes/Goals Expected Outcomes/Goals 1. Pt to meet at least 90% of nutritional needs via nutrition support with tolerance 2. Wt stability, skin to remain intact, labs to approach WNL.
--- NOTE | 2018-05-15 00:53 | Infectious Disease Prog Note ---
Infectious Disease Subjective - Review of Systems Service Date: 05/14/18 Subjective: There is no new change, no fever. Infectious Disease Objective - Results Result Diagrams: 05/07/18 10:45 05/07/18 10:45 Recent Labs: Laboratory Last Values WBC 5.3 Th/cmm (4.8-10.8) 05/07/18 10:45 RBC 3.96 Mil/cmm (3.80-5.80) 05/07/18 10:45 Hgb 11.4 gm/dL (12-16) L 05/07/18 10:45 Hct 34.8 % (41.0-60) L 05/07/18 10:45 MCV 87.8 fl (80-99) 05/07/18 10:45 MCH 28.8 pg (27.0-31.0) 05/07/18 10:45 MCHC Differential 32.8 pg (28.0-36.0) 05/07/18 10:45 RDW 14.5 % (11.5-20.0) 05/07/18 10:45 Plt Count 108 Th/cmm (150-400) L 05/07/18 10:45 MPV 11.4 fl 05/07/18 10:45 Neutrophils % 55.5 % (40.0-80.0) 05/07/18 10:45 Lymphocytes % 26.6 % (20.0-50.0) 05/07/18 10:45 Monocytes % 12.5 % (2.0-10.0) H 05/07/18 10:45 Eosinophils % 4.9 % (0.0-5.0) 05/07/18 10:45 Basophils % 0.5 % (0.0-2.0) 05/07/18 10:45 Sodium 142 mEq/L (136-145) 05/07/18 10:45 Potassium 4.3 mEq/L (3.5-5.1) 05/07/18 10:45 Chloride 109 mEq/L (98-107) H 05/07/18 10:45 Carbon Dioxide 25.7 mEq/L (21.0-31.0) 05/07/18 10:45 Anion Gap 11.6 (7.0-16.0) 05/07/18 10:45 BUN 48 mg/dL (7-25) H 05/07/18 10:45 Creatinine 1.0 mg/dL (0.7-1.3) 05/07/18 10:45 Est GFR ( Amer) TNP 05/07/18 10:45 Est GFR (Non-Af Amer) TNP 05/07/18 10:45 BUN/Creatinine Ratio 48.0 05/07/18 10:45 Glucose 100 mg/dL (70-105) 05/07/18 10:45 POC Glucose 88 MG/DL (70 - 105) 05/05/18 10:00 Calcium 9.1 mg/dL (8.6-10.3) 05/07/18 10:45 Total Bilirubin 0.4 mg/dL (0.3-1.0) 05/05/18 02:15 AST 21 U/L (13-39) 05/05/18 02:15 ALT 12 U/L (7-52) 05/05/18 02:15 Alkaline Phosphatase 90 U/L (34-104) 05/05/18 02:15 Troponin I 0.01 ng/mL (0.01-0.05) 05/05/18 02:15 Total Protein 8.0 gm/dL (6.0-8.3) 05/05/18 02:15 Albumin 3.5 gm/dL (4.2-5.5) L 05/05/18 02:15 Globulin 4.5 gm/dL 05/05/18 02:15 Albumin/Globulin Ratio 0.8 (1.0-1.8) L 05/05/18 02:15 Coccidioides Ab 1:2 (Neg:<1:2) 05/07/18 10:45 - Physical Exam Vitals and I&O: Vital Signs Temp 98.7 F 05/14/18 15:42 Pulse 71 05/14/18 15:42 Resp 18 05/14/18 21:00 BP 118/70 05/14/18 15:42 Pulse Ox 97 05/14/18 15:42 Intake & Output 05/14/18 05/14/18 05/15/18 06:59 18:59 06:59 Intake Total 708 Output Total 375 80 Balance -375 628 Weight (lbs) 74.389 kg 74.389 kg Intake: Tube Feeding 708 Output: Urine 375 80 Other: # Voids 3 # Bowel Movements 1 Weight Source Bedscale Bedscale Active Medications: Current Medications Lipase/Protease/Amylase (Zenpep 5,000 U) 1 cap PO BID [facility] Stop: 07/04/18 16:59 Last Admin: 05/14/18 17:36 Dose: 1 cap Artificial Tears (Artificial Tears Ophth Soln) 2 drop EACH EYE DAILY [facility] Stop: 07/05/18 08:59 Last Admin: 05/14/18 09:49 Dose: Not Given Benazepril HCl (Lotensin) 10 mg GT DAILY [facility] Stop: 07/05/18 08:59 Last Admin: 05/14/18 09:45 Dose: 10 mg Donepezil HCl (Aricept) 15 mg GT DAILY [facility] Stop: 07/05/18 08:59 Last Admin: 05/14/18 09:46 Dose: 15 mg Duloxetine HCl (Cymbalta) 60 mg PO DAILY [facility] Stop: 07/05/18 08:59 Last Admin: 05/14/18 09:46 Dose: 60 mg Glycopyrrolate (Robinul) 1 mg PO BID [facility] Stop: 07/04/18 16:59 Last Admin: 05/14/18 17:35 Dose: 1 mg Guaifenesin (Robitussin) 200 mg GT Q6HR PRN PRN Reason: Cough Stop: 07/04/18 13:25 Ceftriaxone Sodium 1 gm/ (Sodium Chloride) 50 mls @ 100 mls/hr IV Q24HR [facility] Stop: 07/04/18 10:06 Last Admin: 05/14/18 09:44 Dose: 100 mls/hr Quetiapine Fumarate (Seroquel) 100 mg GT BID [facility]; Protocol Stop: 07/04/18 16:59 Last Admin: 05/14/18 17:36 Dose: 100 mg Sodium Bicarbonate (Sodium Bicarbonate) 650 mg GT BID [facility]; Protocol Stop: 07/04/18 16:59 Last Admin: 05/14/18 17:36 Dose: 650 mg Tamsulosin HCl (Flomax) 0.4 mg GT DAILY [facility] Stop: 07/05/18 08:59 Last Admin: 05/14/18 09:47 Dose: 0.4 mg Valproate Sodium (Depakene) 500 mg GT HS [facility]; Protocol Stop: 07/04/18 20:59 Last Admin: 05/14/18 21:22 Dose: Not Given General: no acute distress, cachectic HEENT: atraumatic, normocephalic, PERRLA, EOMI Neck: supple, no thyromegaly Cardiovascular: S1S2, regular Lungs: clear to auscultation bilaterally, clear to percussion Abdomen: soft, no tender, no distended, no rebound Extremities: no cyanosis, no clubbing, no edema Neurological: awake, alert, oriented Skin: intact Infectious Disease Assmt/Plan - Assessment Assessment: 1. Cavitary lesion in the lung. seems less likely Pulmonary TB. Sputum for AFB smear is negative x3, MTB PCR x 2 negative; TB gold quantiferon is pending. 2, BPH. 3. Afib. 4. Prostate CA. - Plan Plan: When cleared by the public health/Infection Control DEPT patient can be removed from isolation and dc patient. Nutritional Asmnt/Malnutr-PDOC - Dietary Evaluation Malnutrition Findings (Please click <Entered> for more info): Nutritional Asmnt/Malnutrition Start: 05/06/18 15: 50 Text: Status: Complete Freq: Protocol: Document 05/06/18 15:50 LCHENG (Rec: 05/06/18 16:06 LCHENG [email or web address]) Nutritional Asmnt/Malnutrition Patient General Information Nutritional Screening High Risk Diagnosis possible DC Pertinent Medical Hx/Surgical Hx afib, BOPH, stage4 blader CA, PEG/Gtube, trach Subjective Information Pt seen in [facility] isolation room. Per RN, pt is geting bolus feeding 5 times daily. Current Diet Order/ Nutrition Support Jevity 1.2 250ml x 5 daily Pertinent Medications seroquel Pertinent Labs 05/06 BUN 45 Nutritional Hx/Data Height 1.68 m Height (Calculated Centimeters) 167.6 Current Weight (lbs) 73.936 kg Weight (Calculated Kilograms) 73.9 Weight (Calculated Grams) 43940.6 [place] Body Weight 142 Body Mass Index (BMI) 26.3 Weight Status Overweight GI Symptoms GI Symptoms None Last BM 05/05 Difficult in: None Skin Integrity/Comment: skin tear reddended to lwoer buttocks Estimated Nutritional Goals BEE in Kcals: Using Current wt Calories/Kcals/Kg 20-25 Kcals Calculated 9608-8461 Protein: Using Current wt Protein g/k.8-1 Protein Calculated 59-74 Fluid: ml 1480-1850ml (1ml/kcal) Nutritional Problem No current Nutrition Prob Problem N/A Malnutrition Alert Is there a minimum of two criteria No selected? Query Text:Check all the applicable criteria. A minimum of two criteria are recommended for diagnosis of either severe or non-severe malnutrition. Malnutrition Related to Morbid Obesity Malnutrition related to morbid obesity No Intervention/Recommendation Comments 1. Continue with current TF regimen. It provides 1500kcal, 69g protein, 1008ml free water, meeting 100% of nutritional needs 2. Monitor tolerance, wt, skin integrity and labs 3. F/U as moderate risk in 3-5 days Expected Outcomes/Goals Expected Outcomes/Goals 1. Pt to meet at least 90% of nutritional needs via nutrition support with tolerance 2. Wt stability, skin to remain intact, labs to approach WNL.
[2018-05-15] MEDS: Polyvinyl Alcohol Ophth Soln 15 mL Bottle EACH EYE SCH (09:12)
[2018-05-15] MEDS: cefTRIAXone 1 GM in Sodium Chloride 0.9% 50 ML IV SCH (09:12)
--- NOTE | 2018-05-15 10:48 | Diagnostic Imaging Report ---
CHEST X-RAY: AP view INDICATION: Shortness of breath COMPARISON: None FINDINGS: Tracheostomy tube is noted. Low lung lungs are seen with increased right basal lung markings. Spinal stimulator noted is noted. Heart size mildly prominent. Atherosclerosis is noted. Joint of changes of the spine are noted. IMPRESSION: Right basal atelectasis versus less likely infiltrate. Mild cardiomegaly with atherosclerosis. Spinal stimulator and tracheostomy tube noted.
--- NOTE | 2018-05-15 16:49 | Progress Notes ---
DATE: 05/14/2018 PULMONARY PROGRESS NOTE SUBJECTIVE: The patient appears to be doing okay, comfortable, in no distress. Minimal secretions. OBJECTIVE: VITAL SIGNS: Temperature 98.7, pulse 71, respirations ____, blood pressure 118/70, saturation 97%. CHEST: Good breath sounds. No wheezing. Few rhonchi. HEART: Regular rate and rhythm. ABDOMEN: Soft and nondistended. EXTREMITIES: No edema. LABORATORY AND DIAGNOSTIC DATA: The ____ titers are negative. IMPRESSION: This is an 82-year-old male with: 1. Chronic respiratory failure. 2. Bladder carcinoma with metastases. 3. Cystic lesion in the lung. 4. Tuberculosis ruled out. PLAN: 1. Continue antibiotics. 2. Follow up chest x-ray and labs. 3. Awaiting clearance from the health department to be discharged. JOB# [id number]
[2018-05-16] MEDS: cefTRIAXone 1 GM in Sodium Chloride 0.9% 50 ML IV SCH (09:43)
[2018-05-16] MEDS: Polyvinyl Alcohol Ophth Soln 15 mL Bottle EACH EYE SCH (09:44)
--- NOTE | 2018-05-16 13:50 | Internal Medicine Prog Note ---
Internal Medicine Subjective - Subjective Service Date: 05/16/18 Patient is:: awake, verbal, interactive, in bed, talking, denies any new complaints Patient Complaints of:: other Per staff patient has:: no adverse event, no episodes of fall, tolerating meds Internal Medicine Objective - Results Result Diagrams: 05/07/18 10:45 05/07/18 10:45 Recent Labs: Laboratory Last Values WBC 5.3 Th/cmm (4.8-10.8) 05/07/18 10:45 RBC 3.96 Mil/cmm (3.80-5.80) 05/07/18 10:45 Hgb 11.4 gm/dL (12-16) L 05/07/18 10:45 Hct 34.8 % (41.0-60) L 05/07/18 10:45 MCV 87.8 fl (80-99) 05/07/18 10:45 MCH 28.8 pg (27.0-31.0) 05/07/18 10:45 MCHC Differential 32.8 pg (28.0-36.0) 05/07/18 10:45 RDW 14.5 % (11.5-20.0) 05/07/18 10:45 Plt Count 108 Th/cmm (150-400) L 05/07/18 10:45 MPV 11.4 fl 05/07/18 10:45 Neutrophils % 55.5 % (40.0-80.0) 05/07/18 10:45 Lymphocytes % 26.6 % (20.0-50.0) 05/07/18 10:45 Monocytes % 12.5 % (2.0-10.0) H 05/07/18 10:45 Eosinophils % 4.9 % (0.0-5.0) 05/07/18 10:45 Basophils % 0.5 % (0.0-2.0) 05/07/18 10:45 Sodium 142 mEq/L (136-145) 05/07/18 10:45 Potassium 4.3 mEq/L (3.5-5.1) 05/07/18 10:45 Chloride 109 mEq/L (98-107) H 05/07/18 10:45 Carbon Dioxide 25.7 mEq/L (21.0-31.0) 05/07/18 10:45 Anion Gap 11.6 (7.0-16.0) 05/07/18 10:45 BUN 48 mg/dL (7-25) H 05/07/18 10:45 Creatinine 1.0 mg/dL (0.7-1.3) 05/07/18 10:45 Est GFR ( Amer) TNP 05/07/18 10:45 Est GFR (Non-Af Amer) TNP 05/07/18 10:45 BUN/Creatinine Ratio 48.0 05/07/18 10:45 Glucose 100 mg/dL (70-105) 05/07/18 10:45 POC Glucose 88 MG/DL (70 - 105) 05/05/18 10:00 Calcium 9.1 mg/dL (8.6-10.3) 05/07/18 10:45 Total Bilirubin 0.4 mg/dL (0.3-1.0) 05/05/18 02:15 AST 21 U/L (13-39) 05/05/18 02:15 ALT 12 U/L (7-52) 05/05/18 02:15 Alkaline Phosphatase 90 U/L (34-104) 05/05/18 02:15 Troponin I 0.01 ng/mL (0.01-0.05) 05/05/18 02:15 Total Protein 8.0 gm/dL (6.0-8.3) 05/05/18 02:15 Albumin 3.5 gm/dL (4.2-5.5) L 05/05/18 02:15 Globulin 4.5 gm/dL 05/05/18 02:15 Albumin/Globulin Ratio 0.8 (1.0-1.8) L 05/05/18 02:15 Coccidioides Ab 1:2 (Neg:<1:2) 05/07/18 10:45 - Physical Exam Vitals and I&O: Vital Signs Temp 98.2 F 05/16/18 12:00 Pulse 60 05/16/18 12:00 Resp 18 05/16/18 12:00 BP 122/63 05/16/18 12:00 Pulse Ox 95 05/16/18 12:00 Intake & Output 05/15/18 05/16/18 05/16/18 18:59 06:59 18:59 Intake Total 1161 800 Output Total 600 Balance 1161 200 Weight (lbs) 164 lb 164 lb Intake: Intake, IV Amount 50 cefTRIAXone 1 gm In 50 Sodium Chloride 0.9% 50 ml @ 100 mls/hr IV Q24HR [facility] Rx#:[id number] Tube Feeding 711 800 Other 400 Output: Urine 600 Other: # Voids 2 # Bowel Movements 1 Stool Characteristics Soft Soft Soft Brown Brown Brown Weight Source Bedscale Bedscale Active Medications: Current Medications Lipase/Protease/Amylase (Zenpep 5,000 U) 1 cap PO BID [facility] Stop: 07/04/18 16:59 Last Admin: 05/16/18 09:43 Dose: 1 cap Artificial Tears (Artificial Tears Ophth Soln) 2 drop EACH EYE DAILY [facility] Stop: 07/05/18 08:59 Last Admin: 05/16/18 09:44 Dose: Not Given Benazepril HCl (Lotensin) 10 mg GT DAILY [facility] Stop: 07/05/18 08:59 Last Admin: 05/16/18 09:42 Dose: 10 mg Donepezil HCl (Aricept) 15 mg GT DAILY [facility] Stop: 07/05/18 08:59 Last Admin: 05/16/18 09:43 Dose: 15 mg Duloxetine HCl (Cymbalta) 60 mg PO DAILY [facility] Stop: 07/05/18 08:59 Last Admin: 05/16/18 09:43 Dose: 60 mg Glycopyrrolate (Robinul) 1 mg PO BID [facility] Stop: 07/04/18 16:59 Last Admin: 05/16/18 09:44 Dose: 1 mg Guaifenesin (Robitussin) 200 mg GT Q6HR PRN PRN Reason: Cough Stop: 07/04/18 13:25 Ceftriaxone Sodium 1 gm/ (Sodium Chloride) 50 mls @ 100 mls/hr IV Q24HR [facility] Stop: 07/04/18 10:06 Last Admin: 05/16/18 09:43 Dose: 100 mls/hr Quetiapine Fumarate (Seroquel) 100 mg GT BID [facility]; Protocol Stop: 07/04/18 16:59 Last Admin: 05/16/18 09:43 Dose: 100 mg Sodium Bicarbonate (Sodium Bicarbonate) 650 mg GT BID [facility]; Protocol Stop: 07/04/18 16:59 Last Admin: 05/16/18 09:43 Dose: 650 mg Tamsulosin HCl (Flomax) 0.4 mg GT DAILY [facility] Stop: 07/05/18 08:59 Last Admin: 05/16/18 09:43 Dose: 0.4 mg Valproate Sodium (Depakene) 500 mg GT HS [facility]; Protocol Stop: 07/04/18 20:59 Last Admin: 05/15/18 20:48 Dose: 500 mg General: weak, alert HEENT: NC/AT, PERRLA Neck: + trach Lungs: wheezing, rales Cardiovascular: RRR, Normal S1 Abdomen: soft, non-tender, non-distended Extremities: excoriation Neurological: alert, muscle weakness Internal Medicine Assmt/Plan - Assessment Assessment: r/o tb aspiration pneumonia respiratory failure BPh stage 4 bladder ca tracheostomy status - Plan Plan: awaiting for [facility] for clearance continue current plan of care Nutritional Asmnt/Malnutr-PDOC - Dietary Evaluation Malnutrition Findings (Please click <Entered> for more info): Nutritional Asmnt/Malnutrition Start: 05/06/18 15: 50 Text: Status: Complete Freq: Protocol: Document 05/06/18 15:50 LCHENG (Rec: 05/06/18 16:06 LCHENG [id number]) Nutritional Asmnt/Malnutrition Patient General Information Nutritional Screening High Risk Diagnosis possible DC Pertinent Medical Hx/Surgical Hx afib, BOPH, stage4 blader CA, PEG/Gtube, trach Subjective Information Pt seen in [facility] isolation room. Per RN, pt is geting bolus feeding 5 times daily. Current Diet Order/ Nutrition Support Jevity 1.2 250ml x 5 daily Pertinent Medications seroquel Pertinent Labs 05/06 BUN 45 Nutritional Hx/Data Height 5 ft 6 in Height (Calculated Centimeters) 167.6 Current Weight (lbs) 163 lb Weight (Calculated Kilograms) 73.9 Weight (Calculated Grams) 39038.6 [place] Body Weight 142 Body Mass Index (BMI) 26.3 Weight Status Overweight GI Symptoms GI Symptoms None Last BM 05/05 Difficult in: None Skin Integrity/Comment: skin tear reddended to lwoer buttocks Estimated Nutritional Goals BEE in Kcals: Using Current wt Calories/Kcals/Kg 20-25 Kcals Calculated 2350-8235 Protein: Using Current wt Protein g/k.8-1 Protein Calculated 59-74 Fluid: ml 1480-1850ml (1ml/kcal) Nutritional Problem No current Nutrition Prob Problem N/A Malnutrition Alert Is there a minimum of two criteria No selected? Query Text:Check all the applicable criteria. A minimum of two criteria are recommended for diagnosis of either severe or non-severe malnutrition. Malnutrition Related to Morbid Obesity Malnutrition related to morbid obesity No Intervention/Recommendation Comments 1. Continue with current TF regimen. It provides 1500kcal, 69g protein, 1008ml free water, meeting 100% of nutritional needs 2. Monitor tolerance, wt, skin integrity and labs 3. F/U as moderate risk in 3-5 days Expected Outcomes/Goals Expected Outcomes/Goals 1. Pt to meet at least 90% of nutritional needs via nutrition support with tolerance 2. Wt stability, skin to remain intact, labs to approach WNL.
--- NOTE | 2018-05-17 04:07 | Progress Notes ---
DATE: PULMONARY PROGRESS NOTE SUBJECTIVE: The patient appears to be doing okay, comfortable and stressed and not much secretions. PHYSICAL EXAMINATION: VITAL SIGNS: Temperature 98.2, pulse 60, respiration 18, blood pressure 122/62 and saturation 95%. CHEST: Good breath sounds, no wheezing and no crackles. HEART: Regular rate and rhythm. ABDOMEN: Soft. EXTREMITIES: No edema. LABORATORY DATA: WBC is 5.3, hemoglobin 11.4, hematocrit 34.8 and platelets 108. Sodium is 142, potassium 4.3, BUN is 48 and creatinine 1.0. Chest x-ray, atelectasis in right base. IMPRESSION: This is an 82-year-old male with pneumonia including presence of cavitary cystic lesion, TB rule out, awaiting [facility] to come back. PLAN: 1. Continue antibiotics. 2. Supportive care. 3. Routine health department clearance, so the patient can be discharged back to his facility. JOB# [id number]
[2018-05-17] MEDS: cefTRIAXone 1 GM in Sodium Chloride 0.9% 50 ML IV SCH (09:56)
[2018-05-17] MEDS: Polyvinyl Alcohol Ophth Soln 15 mL Bottle EACH EYE SCH (10:39)
--- NOTE | 2018-05-17 12:25 | Internal Medicine Prog Note ---
Internal Medicine Subjective - Subjective Service Date: 05/17/18 Patient is:: awake, verbal, interactive, in bed, talking, denies any new complaints Patient Complaints of:: other Per staff patient has:: no adverse event, no episodes of fall, tolerating meds Internal Medicine Objective - Results Result Diagrams: 05/07/18 10:45 05/07/18 10:45 Recent Labs: Laboratory Last Values WBC 5.3 Th/cmm (4.8-10.8) 05/07/18 10:45 RBC 3.96 Mil/cmm (3.80-5.80) 05/07/18 10:45 Hgb 11.4 gm/dL (12-16) L 05/07/18 10:45 Hct 34.8 % (41.0-60) L 05/07/18 10:45 MCV 87.8 fl (80-99) 05/07/18 10:45 MCH 28.8 pg (27.0-31.0) 05/07/18 10:45 MCHC Differential 32.8 pg (28.0-36.0) 05/07/18 10:45 RDW 14.5 % (11.5-20.0) 05/07/18 10:45 Plt Count 108 Th/cmm (150-400) L 05/07/18 10:45 MPV 11.4 fl 05/07/18 10:45 Neutrophils % 55.5 % (40.0-80.0) 05/07/18 10:45 Lymphocytes % 26.6 % (20.0-50.0) 05/07/18 10:45 Monocytes % 12.5 % (2.0-10.0) H 05/07/18 10:45 Eosinophils % 4.9 % (0.0-5.0) 05/07/18 10:45 Basophils % 0.5 % (0.0-2.0) 05/07/18 10:45 Sodium 142 mEq/L (136-145) 05/07/18 10:45 Potassium 4.3 mEq/L (3.5-5.1) 05/07/18 10:45 Chloride 109 mEq/L (98-107) H 05/07/18 10:45 Carbon Dioxide 25.7 mEq/L (21.0-31.0) 05/07/18 10:45 Anion Gap 11.6 (7.0-16.0) 05/07/18 10:45 BUN 48 mg/dL (7-25) H 05/07/18 10:45 Creatinine 1.0 mg/dL (0.7-1.3) 05/07/18 10:45 Est GFR ( Amer) TNP 05/07/18 10:45 Est GFR (Non-Af Amer) TNP 05/07/18 10:45 BUN/Creatinine Ratio 48.0 05/07/18 10:45 Glucose 100 mg/dL (70-105) 05/07/18 10:45 POC Glucose 88 MG/DL (70 - 105) 05/05/18 10:00 Calcium 9.1 mg/dL (8.6-10.3) 05/07/18 10:45 Total Bilirubin 0.4 mg/dL (0.3-1.0) 05/05/18 02:15 AST 21 U/L (13-39) 05/05/18 02:15 ALT 12 U/L (7-52) 05/05/18 02:15 Alkaline Phosphatase 90 U/L (34-104) 05/05/18 02:15 Troponin I 0.01 ng/mL (0.01-0.05) 05/05/18 02:15 Total Protein 8.0 gm/dL (6.0-8.3) 05/05/18 02:15 Albumin 3.5 gm/dL (4.2-5.5) L 05/05/18 02:15 Globulin 4.5 gm/dL 05/05/18 02:15 Albumin/Globulin Ratio 0.8 (1.0-1.8) L 05/05/18 02:15 Coccidioides Ab 1:2 (Neg:<1:2) 05/07/18 10:45 - Physical Exam Vitals and I&O: Vital Signs Temp 98.2 F 05/17/18 11:44 Pulse 59 05/17/18 11:44 Resp 20 05/17/18 11:44 BP 100/48 05/17/18 11:44 Pulse Ox 95 05/17/18 11:44 Intake & Output 05/16/18 05/17/18 05/17/18 18:59 06:59 18:59 Intake Total 1061 600 Output Total 600 Balance 1061 0 Weight (lbs) 164 lb 164 lb Intake: Intake, IV Amount 50 cefTRIAXone 1 gm In 50 Sodium Chloride 0.9% 50 ml @ 100 mls/hr IV Q24HR [facility] Rx#:[id number] Tube Feeding 711 600 Other 300 Output: Urine 600 Other: # Voids 2 # Bowel Movements 1 Stool Characteristics Soft Brown Weight Source Bedscale Bedscale Active Medications: Current Medications Lipase/Protease/Amylase (Zenpep 5,000 U) 1 cap PO BID [facility] Stop: 07/04/18 16:59 Last Admin: 05/17/18 09:55 Dose: 1 cap Artificial Tears (Artificial Tears Ophth Soln) 2 drop EACH EYE DAILY [facility] Stop: 07/05/18 08:59 Last Admin: 05/17/18 10:39 Dose: 2 drop Benazepril HCl (Lotensin) 10 mg GT DAILY [facility] Stop: 07/05/18 08:59 Last Admin: 05/17/18 10:35 Dose: Not Given Donepezil HCl (Aricept) 15 mg GT DAILY [facility] Stop: 07/05/18 08:59 Last Admin: 05/17/18 09:55 Dose: 15 mg Duloxetine HCl (Cymbalta) 60 mg PO DAILY [facility] Stop: 07/05/18 08:59 Last Admin: 05/17/18 09:55 Dose: 60 mg Glycopyrrolate (Robinul) 1 mg PO BID [facility] Stop: 07/04/18 16:59 Last Admin: 05/17/18 10:39 Dose: 1 mg Guaifenesin (Robitussin) 200 mg GT Q6HR PRN PRN Reason: Cough Stop: 07/04/18 13:25 Ceftriaxone Sodium 1 gm/ (Sodium Chloride) 50 mls @ 100 mls/hr IV Q24HR [facility] Stop: 07/04/18 10:06 Last Admin: 05/17/18 09:56 Dose: 100 mls/hr Quetiapine Fumarate (Seroquel) 100 mg GT BID [facility]; Protocol Stop: 07/04/18 16:59 Last Admin: 05/17/18 09:55 Dose: 100 mg Sodium Bicarbonate (Sodium Bicarbonate) 650 mg GT BID [facility]; Protocol Stop: 07/04/18 16:59 Last Admin: 05/17/18 09:55 Dose: 650 mg Tamsulosin HCl (Flomax) 0.4 mg GT DAILY [facility] Stop: 07/05/18 08:59 Last Admin: 05/17/18 09:55 Dose: 0.4 mg Valproate Sodium (Depakene) 500 mg GT HS [facility]; Protocol Stop: 07/04/18 20:59 Last Admin: 05/16/18 21:06 Dose: 500 mg General: weak, alert HEENT: NC/AT, PERRLA Neck: + trach Lungs: wheezing, rales Cardiovascular: RRR, Normal S1 Abdomen: soft, non-tender, non-distended Extremities: excoriation Neurological: alert, muscle weakness Internal Medicine Assmt/Plan - Assessment Assessment: r/o tb aspiration pneumonia respiratory failure BPh stage 4 bladder ca tracheostomy status - Plan Plan: awaiting for [facility] for clearance continue current plan of care Nutritional Asmnt/Malnutr-PDOC - Dietary Evaluation Malnutrition Findings (Please click <Entered> for more info): Nutritional Asmnt/Malnutrition Start: 05/06/18 15: 50 Text: Status: Complete Freq: Protocol: Document 05/06/18 15:50 LCHENG (Rec: 05/06/18 16:06 LCHENG [email or web address]) Nutritional Asmnt/Malnutrition Patient General Information Nutritional Screening High Risk Diagnosis possible DC Pertinent Medical Hx/Surgical Hx afib, BOPH, stage4 blader CA, PEG/Gtube, trach Subjective Information Pt seen in aire[facility] isolation room. Per RN, pt is geting bolus feeding 5 times daily. Current Diet Order/ Nutrition Support Jevity 1.2 250ml x 5 daily Pertinent Medications seroquel Pertinent Labs 05/06 BUN 45 Nutritional Hx/Data Height 5 ft 6 in Height (Calculated Centimeters) 167.6 Current Weight (lbs) 163 lb Weight (Calculated Kilograms) 73.9 Weight (Calculated Grams) 47776.6 [place] Body Weight 142 Body Mass Index (BMI) 26.3 Weight Status Overweight GI Symptoms GI Symptoms None Last BM 05/05 Difficult in: None Skin Integrity/Comment: skin tear reddended to lwoer buttocks Estimated Nutritional Goals BEE in Kcals: Using Current wt Calories/Kcals/Kg 20-25 Kcals Calculated 0165-0311 Protein: Using Current wt Protein g/k.8-1 Protein Calculated 59-74 Fluid: ml 1480-1850ml (1ml/kcal) Nutritional Problem No current Nutrition Prob Problem N/A Malnutrition Alert Is there a minimum of two criteria No selected? Query Text:Check all the applicable criteria. A minimum of two criteria are recommended for diagnosis of either severe or non-severe malnutrition. Malnutrition Related to Morbid Obesity Malnutrition related to morbid obesity No Intervention/Recommendation Comments 1. Continue with current TF regimen. It provides 1500kcal, 69g protein, 1008ml free water, meeting 100% of nutritional needs 2. Monitor tolerance, wt, skin integrity and labs 3. F/U as moderate risk in 3-5 days Expected Outcomes/Goals Expected Outcomes/Goals 1. Pt to meet at least 90% of nutritional needs via nutrition support with tolerance 2. Wt stability, skin to remain intact, labs to approach WNL.
[2018-05-18] MEDS: Polyvinyl Alcohol Ophth Soln 15 mL Bottle EACH EYE SCH ×2 (08:24→08:52)
[2018-05-18] MEDS: cefTRIAXone 1 GM in Sodium Chloride 0.9% 50 ML IV SCH (10:25)
== END 2018-05-18 15:40 | DRG 178 ==
LOC: ER 01:09 → MSI 08:10 → TELE 05-12 14:27
PROVIDERS: ADMIT Internal Medicine; ATTEND Internal Medicine
DX: J15.1 Pneumonia due to Pseudomonas (principal); J96.10 Chronic respiratory failure, unspecified whether with hypoxia or hypercapnia; N40.0 Benign prostatic hyperplasia without lower urinary tract symptoms; Z23 Encounter for immunization; I48.91 Unspecified atrial fibrillation; F31.9 Bipolar disorder, unspecified; E86.0 Dehydration; Z93.0 Tracheostomy status; C61 Malignant neoplasm of prostate; J20.9 Acute bronchitis, unspecified; R13.10 Dysphagia, unspecified
CPT/HCPCS: 36415-UA; 71045-TC; 71260-TC; 80048-TC; 80053-TC; 82948-90; 84484-TC; 85025-TC; 86480-90; 86635-90; 87070; 87116-90; 87206-90; 87556-90; 93005; 94760; 97530; J0696; J7030; J7040; Q9967; X3904; X7704; Z7610